=== PATIENT | female | born 1965 | race Caucasian/White ===

== ENCOUNTER 2016-11-21 17:00 | Observation (INO) ==
[2016-11-21] MEDS ORDERED: 0.9 % Sodium Chloride 500 ML IVC ONE (17:17)
[2016-11-21] MEDS ORDERED: Nitroglycerin 0.4 MG TAB.SUBL SL ONE (17:17)
[2016-11-21] MEDS ORDERED: *HR* Metoprolol 5 MG/5 ML VIAL IVP ONE (17:17)
[2016-11-21] MEDS ORDERED: Aspirin 81 MG TAB.CHEW PO ONE (17:17)
--- NOTE | 2016-11-21 17:20 | Emergency Department Note ---
Disposition Clinical Impression: Chest pain Qualifiers: Chest pain type: unspecified Qualified Code(s): R07.9 - Chest pain, unspecified Disposition: Admitted As Inpatient Condition: Good Referrals: Josef Jennings MD [Primary Care Provider] - Forms: ED Satisfaction Letter Time of Disposition: 18:47 Chest Pain HPI - General Chief Complaint: ED Chest Pain Stated Complaint: chest pressure, DELROY Source: patient, family Limitations: no limitations Vital Signs Reviewed: Yes Nursing Notes Reviewed: Yes - History of Present Illness HPI Narrative: 51-year-old female presents to the emergency department with worsening chest pain. Pain is described as a pressure sensation midsternal radiating to the neck and to the left shoulder. Pain has been pretty much consistent all day but it waxes and wanes. Associated with diaphoresis and some shortness of breath. Patient states he had a similar episode months ago. She says that she recently had a stress test and was told that it did not show significant disease but she is not sure if she has some disease. She denies fevers or chills at this time but did have some sweating earlier today associated with the chest pain. She also notes that she has had her heart but she has felt was racing she said her heart rate has come down below 90. She denies vomiting or diarrhea. She has no other complaints at this time. Patient notes she is a smoker and does have a strong family history both cardiac disease and vascular disease in general. She says she has peripheral vascular disease with narrowing of her arteries. Pt complaint: chest pain Onset (ago): hour(s) Duration: constant Onset: during rest, during exertion Pain Location: substernal Severity: moderate Severity scale (1-10): 5 Quality: tightness, heaviness Pain Radiation: LUE, neck Improves with: nothing Worsens with: nothing Associated symptoms: Reports: diaphoresis, dyspnea Treatments prior to arrival chest pain: none - Related Data Home Medications Medication Instructions Recorded Confirmed Aspirin [Lo-Dose Aspirin EC] 81 mg PO DAILY 10/03/16 10/03/16 Previous Rx's Medication Instructions Recorded Ibuprofen [Motrin] 600 mg PO TID PRN #30 tab 05/01/16 Lisinopril-HCTZ 10-12.5 [Prinzide 1 each PO DAILY #30 tablet 05/01/16 10-12.5] Allergies Allergy/AdvReac Type Severity Reaction Status Date / Time acetaminophen [From Vicodin] AdvReac Hives Verified 10/03/16 15:28 hydrocodone [From Vicodin] AdvReac Hives Verified 10/03/16 15:28 Oxycodone [From Percocet] AdvReac Difficulty Verified 10/03/16 15:28 Breathing All systems ED: reviewed and negative except as stated. Constitutional: Reports: as per HPI Cardiovascular: Reports: as per HPI Respiratory: Reports: as per HPI Gastrointestinal: Reports: as per HPI Genitourinary: Reports: as per HPI Neurological: Denies: headache, weakness, numbness, paresthesias, confusion, abnormal gait, vertigo Chest Pain PMH - Past Medical History Medical history: Reports: hyperlipidemia, hypertension, other Surgical history: Reports: cholecystectomy, hysterectomy Psychiatric history: Reports: no psych history PLANNING LEAD history: Reports: non-contributory - Social History Smoking Status: Current every day smoker Alcohol use: Reports: none Drug use: Reports: none Physical Exam - General Limitations: no limitations General appearance: alert, in no apparent distress - Head Head exam: atraumatic - Eye Eye exam: Present: normal appearance - ENT ENT exam: normal exam - Neck Neck exam: Present: normal inspection - Chest Chest inspection: Present: normal inspection, symmetric chest wall rise - Respiratory Respiratory exam: Present: normal lung sounds bilaterally. Absent: respiratory distress - Cardiovascular Cardiovascular exam: Present: regular rate, tachycardia, normal heart sounds - Abdominal Exam Abdominal exam: Present: soft, Non-Tender - Extremities Exam Extremities exam: Present: normal inspection - Neurological Exam Neurological exam: Present: alert, oriented X3 - Psychiatric Psychiatric exam: Present: normal affect, normal mood - Skin Skin exam: Present: warm, dry, intact Course Vital Signs Temperature 98.1 F 11/21/16 17:09 Pulse Rate 110 11/21/16 17:09 Respiratory Rate 18 11/21/16 17:09 Blood Pressure 137/91 11/21/16 17:09 O2 Sat by Pulse Oximetry 94 L 11/21/16 17:09 Temperature 98.1 F 11/21/16 17:09 Pulse Rate 93 11/21/16 18:30 Respiratory Rate 16 11/21/16 18:30 Blood Pressure 125/80 11/21/16 18:30 O2 Sat by Pulse Oximetry 97 11/21/16 18:30 Oxygen Delivery Oxygen Delivery Room Air Chest Pain - MDM Narrative Medical decision making narrative: We will do workup for chest pain and likely admit. We will also attempt to treat the pain with both Lopressor and nitroglycerin. We will also give the patient aspirin and she is not taken it yet today. Patient's pain improved with nitroglycerin aspirin and Lopressor. She was pain- free at that point. I spoke with cardiology because the patient recently had a normal stress test. And despite this finding and normal workup today he felt there is a potential concern for accelerated angina. His suggestion was to admit to the hospitalist service and have cardiology do another consultation while in hospital. Patient was comfortable with this plan. I spoke with the on -call hospitalist at approximately 6:45 PM and admission was formally arranged. - Medical Records Medical records reviewed: Yes I reviewed the patient's medical records. - Lab Data Lab results reviewed: Yes I reviewed the patient's lab results. Result diagrams: 11/21/16 17:42 11/21/16 17:42 Lab Results 11/21/16 11/21/16 11/21/16 Range/Units 17:42 17:42 17:42 WBC 10.0 (4.3-11.1) K/mcL RBC 4.71 (3.82-4.97) M/mcL Hgb 15.1 (11.5-15.4) g/dL Hct 44.1 (35.3-44.9) % MCV 93.6 (83.0-100.0) fL MCH 32.1 (28.0-33.3) pg MCHC 34.2 (31.6-35.5) g/dL RDW 12.6 (11.5-14.5) % Plt Count 258 (140-400) K/mcL MPV 9.5 (9.4-12.4) fL Immature Gran % 0.4 (0-4) % Seg Neutrophils % 42.6 % Lymphocytes % 45.6 % Monocytes % 5.0 % Eosinophils % 5.5 % Basophils % 0.9 % Neutrophils # 4.3 (1.6-8.9) K/mcL Lymphocytes # 4.6 (0.6-4.6) K/mcL Monocytes # 0.5 (0.0-1.3) K/mcL Eosinophils # 0.6 (0.0-0.6) K/mcL Basophils # 0.1 (0.0-0.2) K/mcL PT 10.7 (9.4-12.1) Seconds INR 1.0 APTT 30.4 (26.0-36.0) Seconds D-Dimer 423 (0-500) ng/mLFEU Sodium (136-145) mEq/L Potassium (3.5-4.5) mEq/L Chloride (98-109) mEq/L Carbon Dioxide (19-29) mEq/L BUN (7-20) mg/dL Creatinine (0.57-1.11) mg/dL Est GFR ( Amer) (> 60) Est GFR (Non-Af Amer) (> 60) BUN/Creatinine Ratio (6-26) Glucose (70-99) mg/dL Calculated Osmolality (280-300) Calcium (8.6-10.8) mg/dL Troponin I (0-0.03) ng/mL B-Natriuretic Peptide < 10 (0-100) pg/mL 11/21/16 11/21/16 Range/Units 17:42 17:42 WBC (4.3-11.1) K/mcL RBC (3.82-4.97) M/mcL Hgb (11.5-15.4) g/dL Hct (35.3-44.9) % MCV (83.0-100.0) fL MCH (28.0-33.3) pg MCHC (31.6-35.5) g/dL RDW (11.5-14.5) % Plt Count (140-400) K/mcL MPV (9.4-12.4) fL Immature Gran % (0-4) % Seg Neutrophils % % Lymphocytes % % Monocytes % % Eosinophils % % Basophils % % Neutrophils # (1.6-8.9) K/mcL Lymphocytes # (0.6-4.6) K/mcL Monocytes # (0.0-1.3) K/mcL Eosinophils # (0.0-0.6) K/mcL Basophils # (0.0-0.2) K/mcL PT (9.4-12.1) Seconds INR APTT (26.0-36.0) Seconds D-Dimer (0-500) ng/mLFEU Sodium 138 (136-145) mEq/L Potassium 3.7 (3.5-4.5) mEq/L Chloride 107 (98-109) mEq/L Carbon Dioxide 19 (19-29) mEq/L BUN 11 (7-20) mg/dL Creatinine 0.76 (0.57-1.11) mg/dL Est GFR ( Amer) > 60 (> 60) Est GFR (Non-Af Amer) > 60 (> 60) BUN/Creatinine Ratio 14 (6-26) Glucose 156 H (70-99) mg/dL Calculated Osmolality 289 (280-300) Calcium 9.3 (8.6-10.8) mg/dL Troponin I 0.00 (0-0.03) ng/mL B-Natriuretic Peptide (0-100) pg/mL - Radiology Data Radiology results reviewed: Yes I reviewed the patient's radiology results. - EKG Data EKG attestation: Yes I reviewed and interpreted this EKG. EKG shows normal: sinus rhythm Rate: tachycardia Rhythm: NSR When compared to previous EKG there are: no significant changes Interpretation: no acute changes Critical Care Time Critical Care Time: Yes Total Critical Care Time: 35 Attestation: Management patient's chest pain and probable angina. Medical care time 35 minutes exclusive of any separately billable procedures.
[2016-11-21 17:57] LABS: Basophils # 0.1 K/mcL (0.0-0.2); Basophils % 0.9 %; Eosinophils # 0.6 K/mcL (0.0-0.6); Eosinophils % 5.5 %; Hematocrit 44.1 % (35.3-44.9); Hemoglobin 15.1 g/dL (11.5-15.4); Immature Granulocytes % 0.4 % (0-4); Lymphocytes # 4.6 K/mcL (0.6-4.6); Lymphocytes % 45.6 %; Mean Corpuscular HGB Conc 34.2 g/dL (31.6-35.5); Mean Corpuscular Hemoglobin 32.1 pg (28.0-33.3); Mean Corpuscular Volume 93.6 fL (83.0-100.0); Mean Platelet Volume 9.5 fL (9.4-12.4); Monocytes # 0.5 K/mcL (0.0-1.3); Neutrophils # 4.3 K/mcL (1.6-8.9); Platelet Count 258 K/mcL (140-400); Red Blood Count 4.71 M/mcL (3.82-4.97); Red Cell Distribution Width 12.6 % (11.5-14.5); Segmented Neutrophils % 42.6 %
[2016-11-21 18:03] LABS: Prothrombin Time 10.7 Seconds (9.4-12.1)
[2016-11-21 18:05] LABS: Activated Partial Thrombo Time 30.4 Seconds (26.0-36.0)
[2016-11-21 18:09] LABS: BUN/Creatinine Ratio 14 (6-26); Blood Urea Nitrogen 11 mg/dL (7-20); Calcium 9.3 mg/dL (8.6-10.8); Carbon Dioxide 19 mEq/L (19-29); Chloride 107 mEq/L (98-109); Glucose 156 mg/dL (70-99); Osmolality,Calculated 289 (280-300); Potassium 3.7 mEq/L (3.5-4.5); Sodium 138 mEq/L (136-145); eGFR For African Americans > 60 (> 60); eGFR For Non-African Americans > 60 (> 60)
[2016-11-21] MEDS ORDERED: Naloxone 0.4 MG/ML INJ IVP PRN (19:38)
[2016-11-21] MEDS ORDERED: Ondansetron 4 MG/2 ML VIAL IVP PRN (19:38)
[2016-11-21] MEDS ORDERED: Nitroglycerin 0.4 MG TAB.SUBL SL PRN (19:42)
--- NOTE | 2016-11-21 19:46 | Internal Med History&Physical ---
<Indy Carvajal - Last Filed: 11/21/16 21:29> Date of Encounter: 11/21/16 Time of Encounter: 19:46 Assessment and Plan (1) Chest pain Current visit: Yes Status: Acute 1 patient had has chest pain is worse with exertion and relieved with nitroglycerin. She had a cardiac stress test which was negative on Wednesday.Tiffani cardiac troponins are negative we will continue to cycle cardiac troponins 2 nitroglycerin / oxygen as needed for chest pain 3 continue with aspirin and statin and add beta tanya 4 we will make patient nothing by mouth after midnight and be seen by cardiology in a.m. 5 continuous cardiac monitoring Qualifiers: Chest pain type: unspecified Qualified Code(s): R07.9 - Chest pain, unspecified (2) HTN (hypertension) Current visit: Yes Status: Acute 1 presently stable we will continue with lisinopril hydrochlorothiazide Qualifiers: Hypertension type: essential hypertension Qualified Code(s): I10 - Essential (primary) hypertension (3) PVD (peripheral vascular disease) Current visit: Yes Status: Acute 1 we will continue with pletal aspirin and statin (4) Tobacco abuse Current visit: Yes Status: Acute 1 presently smokes 1 pack per day-encourage patient to stop smoking offered nicotine patch but patient declined this time Internal Medicine - H&P: HPI Chief complaint: cp Admitted From: Home Plans for Post Hospital Care: Home History of present illness: Ms. Merritt is a 51 year old female with history of hypertension peripheral vascular disease hyperlipidemia. According to the patient she began to experience midsternal chest pressure which she described as squeezing which radiated to her left shoulder and left neck patient's been consistent 5/10 with associated symptoms of diaphoresis and some shortness of breath there were no aggravating or relieving factors. She is also concerned because her heart rate was elevated she felt like it was racing so heart rate was approximately 100 and that her normal resting heart rate is 70 She has similar episode a month ago and she underwent a stress test on Wednesday that was negative for ischemia. She presented to the ER with the above complaints. The patient was given nitroglycerin and aspirin and Lopressor after administration the patient was pain-free.(Cardiac troponin was negative EKG with no ST-T wave abnormalities. Chest x-ray was negative. ER physician did speak with the district manager in training breakdown person who felt there is a potential concern for accelerated angina and suggested patient be admitted by hospitalist services and consult them for evaluation in the a.m. Patient was admitted for further workup and evaluation. Presently the patient is chest pain-free she denies any shortness of breath at present time she is hemodynamically stable I reviewed this case with Dr. Aguilar and agrees with the plan Past Med Surg Social Fam HX - Past Medical History Medical history: hyperlipidemia, hypertension, other Psychiatric history: no psych history - Past Surgical History Surgical History: cholecystectomy, hysterectomy - Social History Smoking Status: Current every day smoker Smokeless Tobacco Status: No Alcohol use: none Drug use: none - Family History Father Living Status: Hx Family Cardiac Disorders: Yes ([place]) Hx Family Neurologic Disorders: Yes (CVA) Sister Hx Family Neurologic Disorders: Yes (CVA) Internal Medicine - H&P: Meds Aspirin [Lo-Dose Aspirin EC] 81 mg PO DAILY 10/03/16 [History] Atorvastatin Calcium [Lipitor] 80 mg PO DAILY 11/22/16 [History] Cilostazol [Pletal] mg PO BID 11/22/16 [History] Lisinopril [Zestril] 5 mg PO DAILY 11/22/16 [History] Allergies acetaminophen [From Vicodin] Adverse Reaction (Verified 10/03/16 15:28) Hives hydrocodone [From Vicodin] Adverse Reaction (Verified 10/03/16 15:28) Hives Oxycodone [From Percocet] Adverse Reaction (Verified 10/03/16 15:28) Difficulty Breathing All Systems PM: A 10-system review of systems was performed and is negative for pertinent findings except as documented above in the HPI. - Constitutional Constitutional: no chills, no fever(s), no night sweats - EENT Eyes: no change in vision, no discharge, no pain, no photophobia - Cardiovascular Cardiovascular ROS IM: chest pain, diaphoresis - Respiratory Respiratory: dyspnea - Gastrointestinal Gastrointestinal: nausea - Genitourinary Genitourinary: no change in urinary stream, no dysuria, no flank pain, no hematuria - Musculoskeletal Musculoskeletal ROS IM: no numbness, no tingling - Integumentary Integumentary IM: no rash, no unusual bruising - Neurological Neurological ROS: no confusion, no convulsions, no focal weakness, no numbness, no tingling, no tremor(s) - Constitutional Vitals: Temp Pulse Resp BP Pulse Ox 98.1 F 91 16 123/86 98 11/21/16 17:09 11/21/16 18:45 11/21/16 19:00 11/21/16 19:00 11/21/16 18:45 General appearance: Present: A&O X 3 - Head Head exam: Present: atraumatic, normocephalic - Neck Neck exam general surgery: Present: supple, trachea midline. Absent: lymphadenopathy - Respiratory Respiratory exam: Present: CTAB. Absent: accessory muscle use, rales, rhonchi, wheezes - Cardiovascular Cardiovascular exam: Present: RRR, +S1, +S2. Absent: diastolic murmur, gallop, rubs, systolic murmur - GI/Abdominal GI/Abdominal exam: Present: normal bowel sounds, soft, no peritoneal signs. Absent: distended, tenderness - Extremities Exam Extremities exam: Present: warm, radial pulses palpable and symetrical. Absent : calf tenderness, cyanotic, pedal edema - Neurological Exam Neurological exam: Present: CN II-XII intact, oriented X3, no focal deficits. Absent: pronater drift, facial droop, speech deficit - Skin Skin exam: Present: dry, intact Internal Med - H&P Results - Labs CBC & Chem 7: 11/21/16 17:42 11/21/16 17:42 - EKG Data EKG shows normal: sinus rhythm Rate: tachycardia - EKG Data Prior EKG available for review: yes When compared to previous EKG: there is no significant change Interpretation IM: normal EKG - VTE Reasons for not Prescribing Prophylaxis: Treatment not Indicated - Low risk for VTE <Sherri Aguilar R - Last Filed: 11/22/16 00:28> Date of Encounter: 11/21/16 Internal Medicine - H&P: HPI History of present illness: Ms. Merritt is a 51 year old female All Systems PM: A 10-system review of systems was performed and is negative for pertinent findings except as documented above in the HPI. - Constitutional Vitals: Temp Pulse Resp BP Pulse Ox 97.6 F 55 20 99/65 94 L 11/21/16 23:15 11/21/16 23:15 11/21/16 23:15 11/21/16 23:15 11/21/16 23:15 Internal Med - H&P Results - Labs CBC & Chem 7: 11/21/16 17:42 11/21/16 17:42 - Attending Attestation I examined this patient and my medical decision-making was reviewed with the SENIOR ACCOUNTANT/PA/Advanced Practice Nurse/Resident Physician. I agree with the documented findings, disposition and treatment plan as described except to the extent set forth below. I have personally evaluated the pt and discussed the details with MANAGER LAW. Patient recently had a negative stress test about a week ago. She presented with chest pain today. No pain at the time of my evaluation. Troponin is negative. EKG showed no acute ST-T changes. O/E: Not in acute distress. Cardiac regular rate and rhythm. 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 Trend troponins. ER physician discussed with district manager in training - cardiac consultation for possible cardiac catheterization. Patient has hyperglycemia - we will check hemoglobin A1c.
[2016-11-22 01:29] LABS: Hemoglobin A1C 6.4 %
[2016-11-22 01:32] LABS: BUN/Creatinine Ratio 14 (6-26); Blood Urea Nitrogen 10 mg/dL (7-20); Carbon Dioxide 20 mEq/L (19-29); Chloride 108 mEq/L (98-109); Chol/HDL Ratio 3.9 (0-4.9); Cholesterol 102 mg/dL (< 200); Glucose 120 mg/dL (70-99); HDL Cholesterol 26 mg/dL (40-59); LDL Cholesterol,Calculated 40 mg/dL (0-99); Osmolality,Calculated 286 (280-300); Potassium 4.1 mEq/L (3.5-4.5); Sodium 138 mEq/L (136-145); Triglycerides 178 mg/dL (< 150); eGFR For African Americans > 60 (> 60); eGFR For Non-African Americans > 60 (> 60)
[2016-11-22] MEDS: Nicotine 14 MG PATCH.TD24 TD SCH (07:49)
--- NOTE | 2016-11-22 09:44 | Cardiology Consult Note ---
Date of Encounter: 11/22/16 Time of Encounter: 09:40 Assessment and Plan (1) Unstable angina Current Visit: Yes Status: Acute Recurrent chest pain over the past month. Multiple risk factors including hypertension, hyperlipidemia, peripheral vascular disease, family history,and tobacco use. Stress test on 11/13/2016 was negative for ischemia or infarct. EF 70%. TTE in 2013 showed normal LV function and no significant valvular disease. Aggressive risk factor modification discussed. Smoking cessation discussed. Continue aspirin and statin. Add low-dose beta tanya. LHC was discussed. (2) HTN (hypertension) Current Visit: Yes Status: Acute Her blood pressure has been is susceptible. Continue lisinopril and hydrochlorothiazide. Qualifiers: Hypertension type: essential hypertension Qualified Code(s): I10 - Essential (primary) hypertension (3) Tobacco abuse Current Visit: Yes Status: Acute Smoking cessation was discussed. Patient would like to try to quit smoking without any assistance at this time. Discussion w patient/family: The assessment and plan as outlined above was discussed with the patient and/or family members who expressed understanding and agreement. All questions were answered. Thank you for involving us in the care of your patient. Please call with any questions. History of Present Illness Consult date: 11/21/16 Consult reason: Recurrent chest pain Chief complaint: Chest pain History of present illness: Ms. Merritt is a 51 year old female with a history of hypertension, HLD, PAD, and tobacco use. She presented with chest discomfort that was present when she woke up yesterday morning. She reports her pain increased through out the day. She denies an increase in chest pain with exertion. Her discomfort was associated with mild shortness of breath and nausea. Her symptoms improved with nitroglycerin. She reports having a midsternal chest discomfort at rest intermittently over the past month. She underwent a stress test on 11/13/2016 that was negative for ischemia or infarct. She denies previous history of CAD. She was recently diagnosed with PAD and follows with a peripheral vascular surgeon. She is currently on medical management. TTE in 2013 showed normal EF and no significant valvular disease. Past Med Surg Social Fam HX - Past Medical History Medical history: hyperlipidemia, hypertension, other (PAD) Psychiatric history: no psych history - Past Surgical History Surgical History: cholecystectomy, hysterectomy - Social History Smoking Status: Current every day smoker (for 35 years) Packs per day: 1 Smokeless Tobacco Status: No Alcohol use: none Drug use: none - Family History Father Living Status: Hx Family Cardiac Disorders: Yes ([place]) Hx Family Neurologic Disorders: Yes (CVA) Sister Hx Family Neurologic Disorders: Yes (CVA) Medications and Allergies Aspirin [Lo-Dose Aspirin EC] 81 mg PO DAILY 10/03/16 [History] Atorvastatin Calcium [Lipitor] 80 mg PO DAILY 11/22/16 [History] Cilostazol [Pletal] mg PO BID 11/22/16 [History] Lisinopril [Zestril] 5 mg PO DAILY 11/22/16 [History] Allergies acetaminophen [From Vicodin] Adverse Reaction (Verified 10/03/16 15:28) Hives hydrocodone [From Vicodin] Adverse Reaction (Verified 10/03/16 15:28) Hives Oxycodone [From Percocet] Adverse Reaction (Verified 10/03/16 15:28) Difficulty Breathing All Systems Review: A 10-system review of systems was performed and is negative for pertinent findings except as documented above in the HPI. Physical Examination Vital Signs, Last 4 Hours Temp Pulse Resp BP Pulse Ox 11/22/16 06:54 97.6 F 68 16 106/73 94 L General: Conversant, No Apparent Distress HEENT: Atraumatic, Normocephaly, Mucus Membranes Moist Neck: No JVD, Normal carotid pulses Cardiac: Reg Rate and Rhythm, Normal S1 and S2, No Murmur Lungs: Normal Breath Sounds, No Wheeze, Rales, Rhonchi Neuro: Alert and responsive, No focal deficits noted Abdomen: Soft, Non-Tender Skin: No rashes noted on visualized skin Musculoskeletal: No Chest Wall Tenderness Extremities: No Clubbing, No Cyanosis, No Edema, Normal Pulses Results 11/21/16 17:42 11/22/16 01:01 Lab Results 11/22/16 11/22/16 11/22/16 01:01 01:01 01:01 Sodium 138 Potassium 4.1 Chloride 108 Carbon Dioxide 20 BUN 10 Creatinine 0.72 Glucose 120 H Calcium 9.0 Troponin I 0.01 B-Natriuretic Peptide < 10 11/22/16 06:49 Sodium Potassium Chloride Carbon Dioxide BUN Creatinine Glucose Calcium Troponin I 0.00 B-Natriuretic Peptide - EKG Interpretation EKG results cardiology: personally reviewed (Sinus tachycardia, heart rate [address] changes.) Consult Discharge Plan - Plan Referrals: Josef Jennings MD [Primary Care Provider] -
[2016-11-22] MEDS: Aspirin 81 MG TAB.CHEW PO SCH (10:35)
--- NOTE | 2016-11-22 16:23 | Internal Med Progress Note ---
Date of Encounter: 11/22/16 Time of Encounter: 16:21 - Assessment and plan (1) Chest pain Current Visit: Yes Status: Acute Assessment and plan: Admitted with chest pain, she underwent cardiac workup in the past, stress test was negative for ischemia. The patient will undergo cardiac catheter tomorrow in a.m. We will keep the patient nothing by mouth after midnight. Continue with current management. Qualifiers: Chest pain type: unspecified Qualified Code(s): R07.9 - Chest pain, unspecified (2) Tobacco abuse Current Visit: Yes Status: Acute - Subjective Interval history: This is my first encounter with the patient. The patient was admitted because of suicidal chest pain, which decreased with the use of nitroglycerin. At this moment the patient is chest pain-free. - Constitutional Vitals: Temp Pulse Resp BP Pulse Ox 97.8 F 68 18 131/85 96 11/22/16 14:40 11/22/16 14:40 11/22/16 14:40 11/22/16 14:40 11/22/16 14:40 General appearance: Present: A&O X 3 - Head Head exam: Present: atraumatic, normocephalic - Eye Eye exam: Present: PERRL, conjuntiva pink, sclera anicteric Pupils: Present: PERRL - Neck Neck exam general surgery: Present: supple, trachea midline. Absent: lymphadenopathy - Respiratory Respiratory exam: Present: CTAB. Absent: accessory muscle use, rales, rhonchi, wheezes - Cardiovascular Cardiovascular exam: Present: RRR, +S1, +S2. Absent: diastolic murmur, gallop, rubs, systolic murmur - GI/Abdominal GI/Abdominal exam: Present: normal bowel sounds, soft, no peritoneal signs. Absent: distended, tenderness - Extremities Exam Extremities exam: Present: warm, radial pulses palpable and symetrical. Absent : calf tenderness, cyanotic, pedal edema - Neurological Exam Neurological exam: Present: CN II-XII intact, oriented X3, no focal deficits. Absent: pronater drift, facial droop, speech deficit - Skin Skin exam: Present: dry, intact Internal Medicine: Result - Labs CBC & Chem 7: 11/21/16 17:42 11/22/16 01:01 Labs: BMP 11/22/16 01:01 Sodium 138 Potassium 4.1 Chloride 108 Carbon Dioxide 20 BUN 10 Creatinine 0.72 Glucose 120 H Calcium 9.0 Cardiac Enzymes 11/22/16 11/22/16 Range/Units 01:01 06:49 Troponin I 0.01 0.00 (0-0.03) ng/mL - ABG Interpretation ABG results: PT/INR, D-dimer PT 10.7 Seconds (9.4-12.1) 11/21/16 17:42 D-Dimer 423 ng/mLFEU (0-500) 11/21/16 17:42 - VTE Reasons for not Prescribing Prophylaxis: Treatment not Indicated - Low risk for VTE Consult Discharge Plan - Plan Referrals: Josef Jennings MD [Primary Care Provider] -
--- NOTE | 2016-11-23 06:17 | Electrocardiograph Report ---
[facility] Test Date: 2016-11-21 Pat Name: Ailyn Merritt Department: 103 Room: 3A34 Gender: F Visual Specialist: ACT : 1965 Requested By: Carlos Lira Order Number: [id number] Reading MD: Chucky Villanueva MD Measurements Intervals [place] Rate: 104 P: 14 OR: 122 QRS: 72 QRSD: 86 T: 15 QT: 341 QTc: 401 Interpretive Statements SINUS TACHYCARDIA POSSIBLE INFERIOR MYOCARDIAL INFARCTION, PROBABLY OLD Electronically Signed On 11-23-16 06:16:05 EST by Chucky Villanueva MD
[2016-11-23] MEDS: Aspirin 81 MG TAB.CHEW PO SCH ×2 (08:10→17:49)
[2016-11-23] MEDS: Nicotine 14 MG PATCH.TD24 TD SCH (08:11)
[2016-11-23] MEDS ORDERED: Heparin 1,000 UNITS/500 mL NS 500 ML ONE (12:25)
[2016-11-23] MEDS ORDERED: *HR* Heparin 10,000 UNIT/10 ML VIAL ONE ×2 (12:25→13:39)
[2016-11-23] MEDS ORDERED: 0.9 % Sodium Chloride 1,000 ML ONE ×3 (12:25→14:21)
[2016-11-23] MEDS ORDERED: *HR* FentaNYL (PF) 100 MCG/2 ML VIAL ONE ×2 (13:09→15:19)
[2016-11-23] MEDS ORDERED: *HR* Midazolam HCl 2 MG/2 ML VIAL ONE ×2 (13:09→13:11)
[2016-11-23] MEDS ORDERED: Nitroglycerin 1,000 MCG/10 ML VIAL IV ONE (13:39)
[2016-11-23] MEDS ORDERED: Verapamil 5 MG/2 ML VIAL ONE (13:39)
--- NOTE | 2016-11-23 14:31 | Pre-Sedation Evaluation ---
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
[2016-11-23] MEDS ORDERED: *HR* Midazolam HCl 5 MG/5 ML VIAL IVP ONE (14:46)
[2016-11-23] MEDS ORDERED: Tirofiban 12.5 MG/250ML 12.5 MG/250 ML BAG ONE (15:22)
[2016-11-23] MEDS ORDERED: *HR* HYDROcodone/Acet 5/325 mg TABLET PO PRN (15:41)
[2016-11-23] MEDS ORDERED: Nitroglycerin Spray 4.9 GM BOTTLE ONE (15:45)
[2016-11-23] MEDS ORDERED: *HR* Morphine 2 MG/ML SYRINGE ONE (15:47)
[2016-11-23] MEDS ORDERED: traMADol 50 MG TABLET PO PRN (15:57)
--- NOTE | 2016-11-23 15:57 | Internal Med Progress Note ---
<Frederick Randle - Last Filed: 11/23/16 15:47> Date of Encounter: 11/23/16 Time of Encounter: 15:48 - Assessment and plan (1) Chest pain, rule out acute myocardial infarction Current Visit: Yes Status: Acute Assessment and plan: Stress test as outpt was negative, has multiple risk factors for CAD, cardio consulted, LHC today, will f/u on the results. (2) Pre-diabetes Current Visit: Yes Status: Acute Assessment and plan: A1C was 6.4, advised pt to start diet and lifestyle modification with weekly exercise. (3) HLD (hyperlipidemia) Current Visit: Yes Status: Acute Assessment and plan: Con't lipitor. Qualifiers: Qualified Code(s): E78.5 - Hyperlipidemia, unspecified (4) HTN (hypertension) Current Visit: Yes Status: Acute Assessment and plan: Con't lopressor. Qualifiers: Qualified Code(s): I10 - Essential (primary) hypertension (5) DVT prophylaxis Current Visit: Yes Status: Acute Assessment and plan: IPCs. - Subjective Interval history: Pt seen and examined this AM, denies active chest pain, no nausea/emesis or abd pain. - Constitutional Vitals: Temp Pulse Resp BP Pulse Ox 98.3 F 72 16 121/80 97 11/23/16 11:04 11/23/16 11:04 11/23/16 11:04 11/23/16 11:04 11/23/16 11:04 General appearance: Present: cooperative, A&O X 3, pleasant, no acute distress, answers questions appropriately - Head Head exam: Present: atraumatic, normocephalic - Eye Eye exam: Present: PERRL, conjuntiva pink, sclera anicteric Pupils: Present: PERRL - Neck Neck exam general surgery: Present: supple, trachea midline. Absent: lymphadenopathy - Respiratory Respiratory exam: Present: CTAB. Absent: accessory muscle use, rales, rhonchi, wheezes - Cardiovascular Cardiovascular exam: Present: RRR, +S1, +S2. Absent: diastolic murmur, gallop, rubs, systolic murmur - GI/Abdominal GI/Abdominal exam: Present: normal bowel sounds, soft, no peritoneal signs. Absent: distended, tenderness - Extremities Exam Extremities exam: Present: warm, radial pulses palpable and symetrical. Absent : calf tenderness, cyanotic, pedal edema - Neurological Exam Neurological exam: Present: CN II-XII intact, oriented X3, no focal deficits. Absent: pronater drift, facial droop, speech deficit - Skin Skin exam: Present: dry, intact Internal Medicine: Result - Labs CBC & Chem 7: 11/21/16 17:42 11/22/16 01:01 - ABG Interpretation ABG results: PT/INR, D-dimer PT 10.7 Seconds (9.4-12.1) 11/21/16 17:42 D-Dimer 423 ng/mLFEU (0-500) 11/21/16 17:42 - VTE Reasons for not Prescribing Prophylaxis: Treatment not Indicated - Low risk for VTE Consult Discharge Plan - Plan Referrals: Josef Jennings MD [Primary Care Provider] - <Kirby Trammell - Last Filed: 11/23/16 17:01> - Assessment and plan (1) Chest pain Current Visit: Yes Status: Acute Qualifiers: Chest pain type: unspecified Qualified Code(s): R07.9 - Chest pain, unspecified (2) Tobacco abuse Current Visit: Yes Status: Acute - Constitutional Vitals: Temp Pulse Resp BP Pulse Ox 97.9 F 72 16 141/90 93 L 11/23/16 16:16 11/23/16 16:16 11/23/16 16:16 11/23/16 16:16 11/23/16 16:16 Internal Medicine: Result - Labs CBC & Chem 7: 11/21/16 17:42 11/22/16 01:01 - ABG Interpretation ABG results: PT/INR, D-dimer PT 10.7 Seconds (9.4-12.1) 11/21/16 17:42 D-Dimer 423 ng/mLFEU (0-500) 11/21/16 17:42 - Attending Attestation I agree with the physical examination findings, assessment and plan documented by the resident Dr. Frederick Randle. I examined the patient independently. Patient will go for a cardiac catheter today, will follow report, discuss the case with cardiology and manage accordingly.
[2016-11-24 06:20] LABS: Basophils # 0.1 K/mcL (0.0-0.2); Eosinophils # 0.5 K/mcL (0.0-0.6); Eosinophils % 5.4 %; Hematocrit 42.7 % (35.3-44.9); Hemoglobin 13.9 g/dL (11.5-15.4); Immature Granulocytes % 0.6 % (0-4); Lymphocytes # 3.5 K/mcL (0.6-4.6); Lymphocytes % 39.9 %; Mean Corpuscular HGB Conc 32.6 g/dL (31.6-35.5); Mean Corpuscular Hemoglobin 31.7 pg (28.0-33.3); Mean Corpuscular Volume 97.3 fL (83.0-100.0); Mean Platelet Volume 9.7 fL (9.4-12.4); Monocytes # 0.5 K/mcL (0.0-1.3); Monocytes % 5.3 %; Neutrophils # 4.2 K/mcL (1.6-8.9); Platelet Count 225 K/mcL (140-400); Red Blood Count 4.39 M/mcL (3.82-4.97); Red Cell Distribution Width 12.7 % (11.5-14.5); Segmented Neutrophils % 47.8 %
[2016-11-24 06:31] LABS: BUN/Creatinine Ratio 14 (6-26); Blood Urea Nitrogen 11 mg/dL (7-20); Calcium 8.9 mg/dL (8.6-10.8); Carbon Dioxide 19 mEq/L (19-29); Chloride 107 mEq/L (98-109); Glucose 133 mg/dL (70-99); Osmolality,Calculated 289 (280-300); Potassium 4.5 mEq/L (3.5-4.5); Sodium 139 mEq/L (136-145); eGFR For African Americans > 60 (> 60); eGFR For Non-African Americans > 60 (> 60)
[2016-11-24 07:20] VITALS: BP 117/75
[2016-11-24] MEDS: Aspirin 81 MG TAB.CHEW PO SCH (11:14)
[2016-11-24] MEDS: Nicotine 14 MG PATCH.TD24 TD SCH (11:15)
--- NOTE | 2016-11-24 12:00 | Cardiology Progress Note ---
Date of Encounter: 11/24/16 Time of Encounter: 12:58 Assessment and Plan (1) Unstable angina Current Visit: Yes Status: Acute Stress test on 11/13/2016 was negative for ischemia or infarct. EF 70%. TTE in 2013 showed normal LV function and no significant valvular disease. LHC-s/p PCI with TRACY to her mid RCA. Normal LV function. Aggressive risk factor modification discussed. Smoking cessation discussed. Continue aspirin and statin, plavix, and bb. Importance of DAPT uninterrupted for a minimum of 1 year discussed with patient and she voiced understanding. Pletal discontinued due to the addition of Plavix. 1-2 week follow-up will be scheduled with [place] cardiology. (2) HTN (hypertension) Current Visit: Yes Status: Acute Continue lisinopril and hydrochlorothiazide. Qualifiers: Hypertension type: essential hypertension Qualified Code(s): I10 - Essential (primary) hypertension (3) Tobacco abuse Current Visit: Yes Status: Acute Smoking cessation was discussed. Patient would like to try to quit smoking without any assistance at this time. Discussion w patient/family: The assessment and plan as outlined above was discussed with the patient and/or family members who expressed understanding and agreement. All questions were answered. Thank you for involving us in the care of your patient. Please call with any questions. Subjective Principal diagnosis: CAD Interval history: Ms. Merritt denies recurrent chest pain. Denies pain or swelling at right radial access site. Objective Vital Signs Temp Pulse Resp BP Pulse Ox 11/24/16 07:16 98 F 62 16 117/75 99 11/24/16 03:47 98.1 F 60 18 119/63 97 11/24/16 00:08 97.9 F 63 16 95/70 92 L 11/23/16 20:21 97.8 F 64 16 114/80 94 L 11/23/16 16:16 97.9 F 72 16 141/90 93 L Intake and Output 11/23/16 11/24/16 11/24/16 23:59 07:59 15:59 Intake Total 240 / 240 300 / 300 Balance 240 / 240 300 / 300 Intake: Oral 240 / 240 300 / 300 Other: Meal Dinner Breakfast Percent of Meal Consumed 60% 25% Weight 84.1 kg Blood Glucose* 167 132 188 General: Conversant, No Apparent Distress HEENT: Atraumatic, Normocephaly, Mucus Membranes Moist Neck: No JVD, Normal carotid pulses Cardiac: Reg Rate and Rhythm, Normal S1 and S2, No Murmur Lungs: Normal Breath Sounds, No Wheeze, Rales, Rhonchi Neuro: Alert and responsive, No focal deficits noted Abdomen: Soft, Non-Tender Skin: No rashes noted on visualized skin Musculoskeletal: No Chest Wall Tenderness Extremities: No Clubbing, No Cyanosis, No Edema, Normal Pulses, Other (Right radial dressing dry and intact. No redness or swelling. 2 /2+ pulses) Results 11/24/16 05:48 11/24/16 05:48 Lab Results 11/24/16 11/24/16 05:48 05:48 WBC 8.8 Hgb 13.9 Hct 42.7 Plt Count 225 Sodium 139 Potassium 4.5 Chloride 107 Carbon Dioxide 19 BUN 11 Creatinine 0.76 Glucose 133 H Calcium 8.9 - Imaging and Cardiology Cardiac cath: report reviewed (Normal EF, 80% mid RCA stenosis, status post PTCA and drug-eluting stent to the mid RCA. There was a 50% stenosis in the mid circumflex artery remaining.) - EKG Interpretation EKG results cardiology: personally reviewed (Normal sinus rhythm with no acute ST changes.) - VTE Reasons for not Prescribing Prophylaxis: Treatment not Indicated - Low risk for VTE Consult Discharge Plan - Plan Referrals: Josef Jennings MD [Primary Care Provider] - Andrey Maxwell DO [Partnered Physician] - 12/08/16 12:00 pm
--- NOTE | 2016-11-24 14:02 | Discharge Summary ---
Date of Encounter: 11/24/16 Time of Encounter: 13:57 - Discharge Diagnosis (1) Unstable angina Priority: Primary Status: Acute (2) Chest pain, rule out acute myocardial infarction Priority: Primary Status: Acute (3) HTN (hypertension) Priority: Secondary Status: Acute Qualifiers: Hypertension type: essential hypertension Qualified Code(s): I10 - Essential (primary) hypertension (4) Hyperglycemia Priority: Secondary Status: Acute (5) HLD (hyperlipidemia) Priority: Secondary Status: Acute Qualifiers: Qualified Code(s): E78.5 - Hyperlipidemia, unspecified (6) PVD (peripheral vascular disease) Priority: Secondary Status: Acute (7) Tobacco abuse Priority: Secondary Status: Acute - Discharge Medications Prescriptions: Nitroglycerin 0.4 mg SL Q5MIN PRN #120 tab.subl PRN Reason: Chest Pain Clopidogrel [Plavix] 75 mg PO DAILY #90 tablet Metoprolol [Lopressor] 12.5 mg PO BID #120 tablet Nicotine Patch [Nicoderm] 14 mg TD DAILY #60 patch.td24 Home Medications: Aspirin [Lo-Dose Aspirin EC] 81 mg PO DAILY 10/03/16 [History] Atorvastatin Calcium [Lipitor] 80 mg PO DAILY 11/22/16 [History] Cilostazol [Pletal] 50 mg PO BID 11/22/16 [History] Lisinopril [Zestril] 5 mg PO DAILY 11/22/16 [History] Sertraline [Zoloft] 50 mg PO DAILY 11/22/16 [History] Clopidogrel [Plavix] 75 mg PO DAILY #90 tablet 11/24/16 [Rx] Metoprolol [Lopressor] 12.5 mg PO BID #120 tablet 11/24/16 [Rx] Nicotine Patch [Nicoderm] 14 mg TD DAILY #60 patch.td24 11/24/16 [Rx] Nitroglycerin 0.4 mg SL Q5MIN PRN #120 tab.subl 11/24/16 [Rx] Allergies/Adverse Reactions: Allergies acetaminophen [From Vicodin] Adverse Reaction (Verified 11/22/16 10:54) Hives hydrocodone [From Vicodin] Adverse Reaction (Verified 11/22/16 10:54) Hives Oxycodone [From Percocet] Adverse Reaction (Verified 11/22/16 10:54) Difficulty Breathing Procedures/tests Complete & Pending: Procedures Performed prior 72 hours Category Date Time Status Left Heart Cath [CL Cardiac Catheterization] [CL] 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 11/22/16 10:19 Ordered Routine ECG 12 lead ECG [ECG] Routine Y 11/23/16 15:46 Completed Date of admission: 11/21/16 18:51 Primary care physician: Josef Jennings MD Consults: 11/23/16 15:41 Consult to Cardiac Rehabilitation-Phase1 [CONS] Routine Comment: Reason for Consult: post op cath Call Completed: Yes Discharging clinician: Marshall Han - Patient Status Disposition: Home, Self-Care Condition: Good Functional capacity at discharge: independent ambulation Overall status at discharge: patient is progressing back to baseline - Discharge Instructions Follow Up With: Josef Jennings MD [Primary Care Provider] - 12/03/16 3:20 pm Andrey Maxwell DO [Partnered Physician] - 12/08/16 12:00 pm - Diet and Activity Activity: increase activity as tolerated Diet: diabetic diet, low fat, low cholesterol Interval History: Ms. Merritt is a 51 year old female with history of hypertension peripheral vascular disease hyperlipidemia. According to the patient she began to experience midsternal chest pressure which she described as squeezing which radiated to her left shoulder and left neck patient's been consistent 5/10 with associated symptoms of diaphoresis and some shortness of breath there were no aggravating or relieving factors. She is also concerned because her heart rate was elevated she felt like it was racing so heart rate was approximately 100 and that her normal resting heart rate is 70 She has similar episode a month ago and she underwent a stress test on Wednesday that was negative for ischemia. She presented to the ER with the above complaints. The patient was given nitroglycerin and aspirin and Lopressor after administration the patient was pain-free.(Cardiac troponin was negative EKG with no ST-T wave abnormalities. Chest x-ray was negative. ER physician did speak with the pattern developer stone setter metal optical frames who felt there is a potential concern for accelerated angina and suggested patient be admitted by hospitalist services and consult them for evaluation in the a.m. Hospital course: Patient was admitted. Patient was evaluated by cardiology. Patient underwent stress test which was negative. Patient underwent cardiac catheterization. Patient had a stent in the mid RCA. LV function was normal. Smoking cessation discussed at length. Patient is on aspirin/Plavix/metoprolol/lisinopril/Lipitor Detailed counseling regarding medications none. Plan Patient can go home today Follow up with primary care in 1 week. Follow-up with cardiology in 1-2 weeks. - Time Spent with Patient Total time spent providing and/or coordinating discharge services: - Constitutional Vitals: Temp Pulse Resp BP Pulse Ox 98 F 62 16 117/75 99 11/24/16 07:16 11/24/16 07:16 11/24/16 07:16 11/24/16 07:16 11/24/16 07:16 General appearance: Present: cooperative, A&O X 3, pleasant, no acute distress, answers questions appropriately - Head Head exam: Present: atraumatic, normocephalic - Eye Eye exam: Present: PERRL, conjuntiva pink, sclera anicteric Pupils: Present: PERRL - Neck Neck exam general surgery: Present: supple, trachea midline. Absent: lymphadenopathy - Respiratory Respiratory exam: Present: CTAB. Absent: accessory muscle use, rales, rhonchi, wheezes - Cardiovascular Cardiovascular exam: Present: RRR, +S1, +S2. Absent: diastolic murmur, gallop, rubs, systolic murmur - GI/Abdominal GI/Abdominal exam: Present: normal bowel sounds, soft, no peritoneal signs. Absent: distended, tenderness - Extremities Exam Extremities exam: Present: warm, radial pulses palpable and symetrical. Absent : calf tenderness, cyanotic, pedal edema - Neurological Exam Neurological exam: Present: CN II-XII intact, oriented X3, no focal deficits. Absent: pronater drift, facial droop, speech deficit - Skin Skin exam: Present: dry, intact - VTE Reasons for not Prescribing Prophylaxis: Treatment not Indicated - Low risk for VTE
--- NOTE | 2016-11-24 21:11 | Electrocardiograph Report ---
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
--- NOTE | 2016-11-25 15:41 | Invasive Diagnostic Lab ---
Name: Ailyn Merritt Date of Study: 11/23/2016 Date: 1965 Ht: 157.0 cm /61.8 in Medical Record#: [id number] Age: 51 Wt: 81.1 kg / 178.57 lb Account/Order#: [id number] Gender: Female BSA: 1.82 Order #: [id number] Fluoro Dose: 459 mGy BMI: 32.86 Procedure Physician: Selvin Sawant MD, FACC Referring MD: Josef Jennings MD Referring MD: Procedures Performed: LEFT HEART CATH Stent w/ PTCA Single Major Vessel Indications: Unstable Angina, SOB Impressions: There is severe one vessel coronary artery disease. The left ventricle is normal and has normal contractility EF 60% Patient had successful PTCA/Drug-Eluting Stent placement in the mid RCA. History/Risk Factors: PVD CP TOBACCO ABUSE SOB Hypertension Procedure Access obtained in the right Radial artery by percutaneous puncture Complications: None Contrast: Isovue 103ml Hemodynamics: Pressures Site Systolic/ A Wave Diastolic/ V Wave End Diastolic/ Mean HR AO 89 63 76 80 LV 97 3 8 100 LV 102 -2 8 89 AO 85 30 63 83 AO 89 64 76 79 LV Ventriculography Ejection Method: LV Gram Ejection Fraction: 60% Wall Motion: ROJAS Anterobasal Normal Anterolateral Normal Apical: Normal Inferoapical Normal Inferobasal Normal Coronary Dominance: right Lesion Findings/Interventions * Left Main Coronary Artery The LMCA is angiographically free of disease. * Left Anterior Descending The LAD is angiographically free of disease. The 1st Diagonal is angiographically free of disease. * Circumflex There is a 50% stenosis in the Mid Circumflex. The lesion has a MITZY flow of 3. * Right Coronary Artery There is a 80% stenosis in the Mid RCA. The lesion has a MITZY flow of 3. Interventional Device(s) Vessel Segment Type Name Diameter (mm) Length (mm) Mid RCA balloon Emerge Monorail 2.5 20 Mid RCA drug-eluting stent Synergy 3.5 32 Updated by Taylor Jimenez RN on 11/23/2016 3:37:03 PM Selvin Sawant MD, FACC electronically signed on 11/25/2016 3:37:31 PM with status of Final
--- NOTE | 2016-11-26 09:52 | Invasive Diagnostic Lab Proc ---
Name: Ailyn Merritt Date of Study: 11/23/2016 Date: 1965 Ht: 61.8in Medical Record#: [id number] Age: 51 Wt: 178.57lb Gender: Female BSA: 1.82 Order #: [id number] BMI: 32.86 Physicians Procedure Physician: eSlvin Sawant MD, [facility] Referring MD: Josef Jennings MD Referring MD: Staff Name Position Time In Terrance Saldivar RN Electric Meter Inspector 02:23 PM Ina Ye RT (R) Scrub 02:23 PM Taylor Jimeenz RN Monitor 02:24 PM Indications Indication Unstable Angina SOB Procedures Performed Procedure L HRT ARTERY/VENTRICLE ANGIO PRQ CARD TRACY STENT W/ANGIO 1 VSL MOD SED OTH PHYS/QHP 5/>YRS MOD SED OTHER PHYS/QHP EA MOD SED OTHER PHYS/QHP EA MOD SED OTHER PHYS/QHP EA MOD SED OTHER PHYS/QHP EA Pre-Procedure Checklist Informed consent is complete signed and on chart. H\\T\\P is on chart. ID band is on and ID verified with patient. Patient NPO for procedure The procedure was described for the patient and questions were answered. Blood Pressure: 159/78 ECG is on chart. Rhythm: NSR Plan of Care Patient will tolerate the procedure without complications. Adequate level of comfort will be maintained. Hemodynamics will remain stable Patient will recover from procedure without complications. Respiratory function will be maintained. Cardiac rhythm will remain stable. Patient temperature will be maintained. Patient and/or family have verbalized understanding of the procedure. Patient Education Chief Complaint/Reason for Test: Cardiac Cath Developmental Category: Adult (18-64 years) Developmentally Appropriate for Age: Yes Learning Barriers: None Education Needs: Procedure Education Method: Verbal Information Taught: Cardiac Cath Educational Evaluation: Able to repeat information Intravenous Access Time IV Size Location DC'd Fluid/Drip Rate Units RN 02:32 PM 20g 1 1/4" Patent On Arrival Lt Wrist 0.9NaCl 25 ml/hr Terrance Saldivar RN Allergies hydrocodone Oxycodone acetaminophen PERCOCET, VICODIN Vital Signs Time BP (mmHg) HR (bpm) O2 Sat. RR (bpm) LOC 02:24 PM / % 5 = Fully awake and oriented or at pre-proc level 02:24 PM / % 5 = Fully awake and oriented or at pre-proc level 02:40 PM / % 5 = Fully awake and oriented or at pre-proc level 02:42 PM / % 5 = Fully awake and oriented or at pre-proc level 02:47 PM / % 5 = Fully awake and oriented or at pre-proc level 03:03 PM / % 5 = Fully awake and oriented or at pre-proc level 03:03 PM / % 5 = Fully awake and oriented or at pre-proc level 03:16 PM / % 5 = Fully awake and oriented or at pre-proc level 03:17 PM / % 5 = Fully awake and oriented or at pre-proc level 02:28 PM 159 / 78 72 98 % 20 02:32 PM 136 / 75 75 96 % 19 02:37 PM 131 / 74 74 95 % 19 02:42 PM 137 / 66 76 94 % 21 02:47 PM 109 / 71 72 97 % 16 02:52 PM 103 / 52 80 91 % 14 02:57 PM 105 / 44 76 93 % 19 03:02 PM 97 / 53 77 93 % 14 03:07 PM 107 / 60 77 91 % 20 03:12 PM 132 / 66 76 95 % 17 03:17 PM 142 / 78 76 97 % 16 03:22 PM 154 / 76 76 96 % 17 03:27 PM 169 / 85 % Procedural Medications Time Medication Dose Units Method Given By 02:28 PM Versed 2 mg Intravenous [place], Terrance POSEY 02:28 PM Fentanyl 50 mcg Intravenous [place], Terrance RN 02:40 PM Versed 2 mg Intravenous [place], Terrance RN 02:40 PM Fentanyl 25 mcg Intravenous [place], Terrance RN 02:44 PM Lidocaine 2% 0.5 ml Subcutaneous Selvin Sawant MD, FACC 02:45 PM Fentanyl 25 mcg Intravenous [place], Terrance RN 02:45 PM Versed 1 mg Intravenous [place], Terrance RN 02:45 PM Heparin 2000 units flush bowl 02:47 PM Heparin 4000 units Nitroglycerin 200 mcg Verapamil 2.5 mg Intraarterial Selvin Sawant MD, FACC 02:49 PM Versed 1 mg Intravenous [place], Terrance RN 03:20 PM Fentanyl 25 mcg Intravenous [place], Terrance RN 03:23 PM Plavix 600 mg Orally Dariusthorntej, Terrance RN 03:26 PM Aggrastat Bolus: 42 ml Intravenous HenthorneTerrance RN 03:26 PM Aggrastat 5mg/100ml 15 ml Intravenous Terrance Saldivar RN ASA Classification: CLASS II- Mild systemic disease (i.e. well-controlled diabetes, hypertension, asthma, cigarette smoking) Nimisha Score Preprocedure Postprocedure Activity 2- Moves 4 extremities sustained head lift Activity 2- Moves 4 extremities sustained head lift Circulation 2- SBP +/= 20 points of pre-anesthetic level Circulation 2- SBP +/= 20 points of pre-anesthetic level Consciousness 2- Awake and alert oriented x 3 Consciousness 2- Awake and alert oriented x 3 O2 Saturation 2- Able to maintain O2 satruation of 92% on room air O2 Saturation 2- Able to maintain O2 satruation of 92% on room air Respiratory 2- Able to deep breathe and cough well Respiratory 2- Able to deep breathe and cough well Total Score 10 Total Score 10 Contrast Agent: Isovue Diagnostic Contrast: 103 ml Total Contrast: 103 ml Fluoro Dose: 459 mGy Activated Clotting Time Time Seconds to Clot 03:08 PM 340 Procedure Log Time Note Enter By 02:23 PM Pt arrived to construction laborer 1 at 14:23 ejohnson 02:23 PM Terrance Saldivar RN Position: Electric Meter Inspector Time in: 14:23 ejohnson 02:24 PM Ina Ye RT (R) Position: Scrub Time in: 14:23 ejohnson 02:24 PM Taylor Jimenez RN Position: Monitor Time in: 14:24 ejohnson 02:24 PM Patient charges- Angio tray pack, Navilyst 3mm J, Pulse Oximetry and ACIST tubing and transducer ejohnson 02:24 PM Case Delayed No, inpatient ejohnson 02:24 PM Hair removed from procedure site in procedure lab using clippers. Right wrist prepped with Chloraprep by Ina Ye RT (R) then patient draped. Skin intact. ejohnson 02:24 PM ASA Class CLASS II- Mild systemic disease (i.e. well-controlled diabetes, hypertension, asthma, cigarette smoking) ejohnson 02:24 PM Meet and greet completed ejohnson 02:24 PM Sign in performed according to hospital policy. ejohnson 02:24 PM Procedure start 14:24 ejohnson 02:24 PM Time: 14:24 Oxygen on at 2 L/min per nasal cannula by Terrance Saldivar RN ejohgalo 02:24 PM Time: 14:24 Patient comfortable and pain free: Yes ejohnson 02:24 PM Time: 14:24LOC: 5 = Fully awake and oriented or at pre-proc level ejohnson 02:25 PM CathStat 02:26 PM Vitals capture started with the following parameters, Patient=Adult, Interval=5 min, Initial Fepejnba=068 mmHg, Deflation Rate=5 mmHg 02:27 PM Recorded ECG: HR=73 Condition=Condition 1 02:28 PM HR=72 bpm, NJIX=441/78 mmhg, SpO2=98.0 %, Resp=20 B/min, Comment=SR 02: PM Time: 14: Versed 2 mg Intravenous Given by Terrance Saldivar RN 02: PM Time: 14: Fentanyl 50 mcg Intravenous Given by Terrance Saldivar RN 02:32 PM HR=75 bpm, ZXLH=342/75 mmhg, SpO2=96.0 %, Resp=19 B/min, Comment=SR 02:35 PM Recorded ECG: HR=69 Condition=Condition 1 02:35 PM Pressure channel 1 zeroed. 02:37 PM HR=74 bpm, MXOO=237/74 mmhg, SpO2=95.0 %, Resp=19 B/min, Comment=SR 02:40 PM Time: 14:24LOC: 5 = Fully awake and oriented or at pre-proc level ejohnson 02:40 PM Time: 14:24 Patient comfortable and pain free: Yes ejohnson 02:40 PM Time: 14:40 Versed 2 mg Intravenous Given by Terrance Saldivar RNohgalo 02:40 PM Time: 14:40 Fentanyl 25 mcg Intravenous Given by Terrance Saldivar RNohgalo 02:41 PM Time out performed according to hospital policy ejohnson 02:42 PM Time: 14:40LOC: 5 = Fully awake and oriented or at pre-proc level ejohnson 02:42 PM Time: 14:40 Patient comfortable and pain free: Yes ejohnson 02:42 PM HR=76 bpm, FJJB=003/66 mmhg, SpO2=94.0 %, Resp=21 B/min, Comment=SR 02:44 PM Time: 14:44 0.5 ml Lidocaine 2% to right radial Subcutaneous Given by Selvin Sawant MD, [facility] ejcanson 02:45 PM Time: 14:45 Fentanyl 25 mcg Intravenous Given by Terrance Saldivar RN ejcansbaudilio 02:45 PM Time: 14:45 Versed 1 mg Intravenous Given by Terrance Saldivar RN ejcagalo 02:46 PM Time: 14:45 Heparin 2000 units flush bowl [facility] PM Access obtained by percutaneous puncture. 6Fr 10cm Terumo Glidesheath sheath placed in right Radial artery. [id number] ejohnson 02:47 PM Time: 14:47 Patient given 4,000 units Heparin, 200 mcg Nitroglycerin, and 2.5 mg Verapamil Intraarterial by Selvin Sawant MD, [facility] ejohnson 02:47 PM HR=72 bpm, FRUV=361/71 mmhg, SpO2=97.0 %, Resp=16 B/min, Comment=SR 02:47 PM Time: 14:42LOC: 5 = Fully awake and oriented or at pre-proc level ejohnson 02:47 PM Time: 14:42 Patient comfortable and pain free: Yes ejohnson 02:48 PM 5Fr TIG catheter inserted over the wire [facility] ejohnson 02:49 PM 0.035 180cm Bentson wire wire [id number] ejohnson 02:49 PM Time: 14:49 Versed 1 mg Intravenous Given by Terrance Saldivar RN ejcansbaudilio 02:51 PM Recorded Pressure: Ao, HR=80, Condition=Condition 1 (Aorta) Ao 89/63/76 02:51 PM LCA angiography performed in multiple views. ejohnson 02:52 PM HR=80 bpm, CCLS=436/52 mmhg, SpO2=91.0 %, Resp=14 B/min, Comment=SR 02:53 PM Recorded Pressure: LV, IL=861, Condition=Condition 1 (Left Ventricle) LV 97/3/8 02:53 PM Catheter selectively placed in left ventricle ejohnson 02:53 PM Bolus angiogram of left Ventricle complete: 10 ml/sec for a total of 30 mls ejohnson 02:53 PM Recorded Pressure: LV, Ao, HR=86, Condition=Condition 1 (Left Ventricle) LV 102/-2/8, (Aorta) Ao 85/30/63 02:54 PM Recorded Pressure: Ao, HR=79, Condition=Condition 1 (Aorta) Ao 89/64/76 02:54 PM RCA angiography performed in multiple views. ejohnson 02:55 PM Coronary Dominance: right ejohnson 02:55 PM Lesion found in Mid RCA. Pre Stenosis: 80 Pre MITZY Flow: 3: Complete and Brisk Flow/Perfusion ejohnson 02:55 PM Right Coronary, Right Posterior Descending Arteries with Right Posterolateral and Acute Marginal branches with 80 % stenosis. ejohnson 02:55 PM Catheter removed ejohnson 02:57 PM HR=76 bpm, LVGG=650/44 mmhg, SpO2=93.0 %, Resp=19 B/min, Comment=SR 02:57 PM 5Fr FL 4 catheter inserted over the wire [id number] ejohnson 02:59 PM LCA angiography performed in multiple views. ejohnson 02:59 PM Lesion found in Mid Circumflex. Pre Stenosis: 50 Pre MITZY Flow: 3: Complete and Brisk Flow/Perfusion ejohnson 02:59 PM Circumflex, Obtuse Marginal, Left Posterior Descending, and Left Posterolateral Coronary Arteries with 50 % stenosis. ejohnson 03:00 PM Catheter removed ejohnson 03:01 PM Inflation device was opened. ejohnson 03:02 PM HR=77 bpm, NIBP=97/53 mmhg, SpO2=93.0 %, Resp=14 B/min, Comment=SR 03:03 PM Time: 14:47 Patient comfortable and pain free: Yes ejohnson 03:03 PM Time: 14:47LOC: 5 = Fully awake and oriented or at pre-proc level ejohnson 03:03 PM 6Fr IM Runway guide catheter was used to cannulate the PCI vessel successfully. reused? No ejohnson 03:03 PM Time: 15:03 Patient comfortable and pain free: Yes ejohnson 03:03 PM Time: 15:03LOC: 5 = Fully awake and oriented or at pre-proc level ejohnson 03:04 PM Guide catheter removed intact. ejohnson 03:05 PM 5Fr JR 4 Convey guide catheter was used to cannulate the PCI vessel successfully. reused? No ejohnson 03:06 PM .014 PT Graphix 180cm guide wire across target lesion- successful. reused? No ejohnson 03:07 PM HR=77 bpm, ZLID=019/60 mmhg, SpO2=91.0 %, Resp=20 B/min, Comment=SR 03:08 PM At 15:08 the ACT was 340 seconds. ejohnson 03:10 PM 2.5 mm x 20 mm Emerge Monorail balloon across target lesion- successful. reused? No ejohnson 03:11 PM Balloon inflated @ 14 deloris for 18 seconds ejohnson 03:12 PM Balloon catheter removed intact. ejohnson 03:12 PM HR=76 bpm, VBVA=326/66 mmhg, SpO2=95.0 %, Resp=17 B/min, Comment=SR 03:13 PM 3.5mm x 32mm Synergy drug-eluting stent across target lesion- successful Lot #[id number] ejohnson 03:13 PM Time: 15:03 Patient comfortable and pain free: Yes ejohnson 03:13 PM Time: 15:03LOC: 5 = Fully awake and oriented or at pre-proc level ejohnson 03:15 PM Stent deployed @ 12 deloris for 13 seconds ejohnson 03:16 PM Stent delivery system removed intact. ejohnson 03:16 PM Time: 15:16 Patient comfortable and pain free: Yes ejohnson 03:17 PM Time: 15:16LOC: 5 = Fully awake and oriented or at pre-proc level ejohnson 03:17 PM 3.5 mm x 20mm NC Emerge balloon across target lesion- successful. reused? No ejohnson 03:17 PM HR=76 bpm, KDWW=252/78 mmhg, SpO2=97.0 %, Resp=16 B/min, Comment=SR 03:18 PM Balloon inflated @ 16 deloris for 10 seconds ejohnson 03:19 PM Balloon inflated @ 12 deloris for 6 seconds ejohnson 03:20 PM Time: 15:20 Fentanyl 25 mcg Intravenous Given by Terrance Saldivar RN ejohnson 03:21 PM Balloon catheter removed intact. ejohnson 03:21 PM Guide wire removed intact. ejohnson 03:21 PM Guide catheter removed intact. ejohnson 03:22 PM Procedure completed at 15:22 ejohnson 03:22 PM Sign out completed: Radiation Dose 459.33 mGy Fluoro Time: 9.6 Isovue 370 - 200ml contrast 103 ml given by Selvin Sawant MD, [facility]. Complications: NoneCardiac Rehab Consult needed: YesConfirmed administered medications: Yes ejohnson 03:22 PM HR=76 bpm, LRCR=476/76 mmhg, SpO2=96.0 %, Resp=17 B/min, Comment=SR 03:22 PM Isovue 370 - 200ml,1 Bottle(s) used. ejohnson 03:22 PM Arterial sheath pulled, Vasc Band closure device used and was Successful S/N. ejohnson 03:22 PM Post ECG NSR ejohnson 03:22 PM Post Blood Pressure 154/76 ejohnson 03:23 PM 15:23 Post Pulses Rt Radial 1+ ejohnson 03:23 PM Information taught PCI and Vasc Band ejohnson 03:23 PM 10 ml air in Vasc Band. ejohnson 03:23 PM Education needs Plan of Care and Responsibilities of Patient in Care ejohnson 03:23 PM Time: 15:23 Plavix 600 mg Orally Given by Terrance Saldivar RN ejohnson 03:23 PM Learning barriers :None ejohnson 03:24 PM Education Methods Verbal ejohnson 03:24 PM Education evaluation Able to repeat information ejohnson 03:24 PM Site status No bleeding/hematoma - Rt Wrist as reported by Ina Ye RT (R) at 15:24 ejohnson 03:24 PM Plavix, Effient or Brilinta given Yes ejohnson 03:24 PM Family placed in consult room. ejohnson 03:24 PM Complications: None ejohnson 03:26 PM Time: 15:26 Aggrastat Bolus: 42 ml Intravenous Given by Terrance Saldivar RN Gresham pump ejohnson 03:27 PM Time: 15:26 Aggrastat 5mg/100ml 15 ml Intravenous Given by Terrance Saldivar RN Gresham pump ejohnson 03:27 PM OUJC=687/85 mmhg, Comment=SR 03:31 PM Report given to Jose POSEY Pt taken to E Room #29. 15:30 ejohnson 03:31 PM Time: 15:16 Patient comfortable and pain free: Yes ejohnson 03:32 PM Time: 15:17LOC: 5 = Fully awake and oriented or at pre-proc level ejohnson 03:32 PM Time: 15:31 Patient comfortable and pain free: Yes ejohnson 03:38 PM Delay to floor No ejohnson 03:38 PM Patient out of room: 15:38 taken to Holding room for EKG due to 10/10 chest pain. Sophia Hector in Holding room and updated ejohnson Equipment Used Size Length Diameter Item Category ACT Other Angio tray pack Other Terumo Glidesheath sheath Bentson wire wire FL 4 catheter Britetip Guide catheter Glidewire wire Inflation kit Other Britetip Guide catheter ACT Other Emerge PTCA Dilatation Catheter Monorail Balloon Xience Lyn Rx Drug Eluting Stent Emerge PTCA Dilatation Catheter Monorail Balloon Isovue 370- 200ml Contrast Vasc Band Manual Compression Manual compression Gresham pump Other Complications Complication None Hemodynamics Pressures Site Systolic/A Wave Diastolic/V Wave Mean AO 89 63 76 LV 97 3 8 LV 102 -2 8 AO 85 30 63 AO 89 64 76 Post Procedure Information Blood Pressure: 154/76 mmHg Rhythm: NSR Post procedural instructions were given Closure Device Time Device Success/Fail 11/23/2016 3:23:00 PM Mechanical Compression Successful Site Checks Time Location Status Staff Sheath In? Note 03:24 PM Rt Wrist No bleeding/hematoma Ina Ye RT (R) Pulses Time Site Pre-Procedure Post-Procedure Note 11/23/2016 2:29:00 PM Bilateral DP \\T\\ PT 2+ 11/23/2016 2:29:00 PM Rt Radial 2+ 11/23/2016 2:29:00 PM Rt Radial Normal plethysmography's Test 3:23:00 PM Rt Radial 1+ Updated by Sophia Hector RT (R) on 11/26/2016 9:45:59 AM Sophia Hector RT electronically signed on 11/26/2016 9:47:28 AM with status of Final
== END 2016-11-24 14:50 | disposition home or self-care (01) ==
LOC: EMEROO 17:00 → 3ANU 17:00 → 2NENU 11-23 15:05
PROVIDERS: ADMIT Internal Medicine; ATTEND Internal Medicine

== ENCOUNTER 2017-08-16 17:24 | Observation (INO) ==
--- NOTE | 2017-08-16 17:51 | Emergency Department Note ---
Disposition Clinical Impression: Chest pain Qualifiers: Chest pain type: unspecified Qualified Code(s): R07.9 - Chest pain, unspecified Disposition: Admitted As Inpatient Condition: Fair Time of Disposition: 18:42 General Adult HPI - General Chief complaint: ED Chest Pain Stated complaint: chest discomfort/SOB Time Seen by Provider: 08/16/17 17:51 Source: patient Mode of arrival: ambulatory Limitations: no limitations Nursing Notes Reviewed: Yes Vital Signs Reviewed: Yes - History of Present Illness HPI Narrative: 52-year-old female presents to the ED with history of chest pain and heart catheterization done this year presents to the ED complaining of chest pain that started this morning. She states the chest pain is substernal pressure that about 4 out of 10 and radiates up into the right jaw and into the right arm. She says this feels the exact same time as last time she had a heart attack. She is complaining of nausea but no vomiting. She has no shortness of breath and does not change with exertion. She last week had a stress test as well as an echo done which were both normal but she said at her last heart attack the same thing occurred where one week prior she had normal stress test and echo but she had needed percent blockage in one of her arteries. She is on Plavix. She is complaining of no fevers, dysuria, changes in bowels, headaches , blurry vision, pain or tingling going down the arms or legs, changes in weight or any other complaints at this time. Pain Scale: 3 - Related Data Home Medications Medication Instructions Recorded Confirmed Aspirin [Lo-Dose Aspirin EC] 81 mg PO DAILY 10/03/16 08/16/17 Atorvastatin Calcium [Lipitor] 80 mg PO QPM 11/22/16 08/16/17 Sertraline [Zoloft] 50 mg PO QPM 11/22/16 08/16/17 Losartan [Cozaar] 25 mg PO DAILY 08/16/17 08/16/17 Previous Rx's Medication Instructions Recorded Clopidogrel [Plavix] 75 mg PO DAILY #90 tablet 11/24/16 Metoprolol [Lopressor] 12.5 mg PO BID #120 tablet 11/24/16 Nitroglycerin 0.4 mg SL Q5MIN PRN #120 tab.subl 11/24/16 Allergies Allergy/AdvReac Type Severity Reaction Status Date / Time hydrocodone [From Vicodin] AdvReac Hives Verified 11/22/16 10:54 Oxycodone [From Percocet] AdvReac Difficulty Verified 11/22/16 10:54 Breathing Review of Systems: 10 point review of systems done and negative unless otherwise stated in the history of present illness. All systems ED: reviewed and negative except as stated. Review of Systems: As Per HPI Constitutional: Denies: fever Cardiovascular: Reports: chest pain. Denies: palpitations Gastrointestinal: Reports: nausea. 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 - Social History Smoking Status: Current every day smoker Smokeless Tobacco Status: No Alcohol use: Reports: none Drug use: Reports: none Physical Exam - General Limitations: no limitations General appearance: alert, in no apparent distress - Head Head exam: atraumatic, normocephalic, normal inspection - Eye Eye exam: Present: normal appearance, PERRL, EOMI - ENT ENT exam: normal exam, normal oropharynx, mucous membranes moist - Neck Neck exam: Present: normal inspection, full ROM, trachea midline - Chest Chest inspection: Present: normal inspection, symmetric chest wall rise - Respiratory Respiratory exam: Present: normal lung sounds bilaterally - Cardiovascular Cardiovascular exam: Present: regular rate, normal rhythm, normal heart sounds - Abdominal Exam Abdominal exam: Present: soft, Non-Tender. Absent: tenderness, distention, guarding, rebound, rigidity - Extremities Exam Extremities exam: Present: normal inspection, full ROM. Absent: tenderness, pedal edema - Expanded Lower Extremity Exam Gait: observed and normal - Back Exam Back exam: Present: normal inspection, full ROM. Absent: tenderness - Neurological Exam Neurological exam: Present: alert, oriented X3 - Skin Skin exam: Present: warm, dry, intact, normal color Course Course Narrative: In triage they did chest x-ray, EKG, CBC, CMP as well as a troponin. After seeing her reside at on a nitroglycerin and aspirin to help with her pain. We will also place an IV and do continuous monitoring. Patient is going to be admitted for chest pain rule out. Patient is okay with this plan. - Consultations Consultation #1: Spoke with the hospitalist who agreed to admit the patient for chest pain rule out. They asked that we consult cardiology. At this time we did consult cardiology. Time: 18:40 Consultation #2: Spoke with cardiology, Dr. Blandon who agreed that they would see the patient. He had no rectal patient at this time. Time: 19:07 Vital Signs Temperature 98.8 F 08/16/17 17:28 Pulse Rate 95 08/16/17 17:28 Respiratory Rate 16 08/16/17 17:28 Blood Pressure 146/79 08/16/17 17:28 O2 Sat by Pulse Oximetry 96 08/16/17 17:28 Temperature 98.8 F 08/16/17 17:28 Pulse Rate 84 08/16/17 18:16 Respiratory Rate 20 08/16/17 18:16 Blood Pressure 142/81 08/16/17 18:16 O2 Sat by Pulse Oximetry 94 08/16/17 18:16 Oxygen Delivery Oxygen Delivery Room Air Medical Decision Making - MDM Narrative Medical decision making narrative: 52-year-old female presents to the ED complaining of chest pain. She states this feels exactly like last time she had her heart attack even though she did have a normal stress tests and echo done the previous time one week before that were normal. She did have echo and stress test done one week ago that also were negative last week. She is having nausea but no vomiting and the chest pain is radiating up to the right shoulder and neck. These atypical symptoms and these being the exact same as last time she had a heart attack we feel that admission is most likely needed. Her troponin and respiratory laboratories are negative chest x-ray was normal and EKG only showed old changes with Q waves in the inferior leads. These were also on the old EKG. We are going to admit the patient to the hospital service and consult cardiology. Patient is okay with this plan. Chest X-Ray 08/16/17 17:33 IMPRESSION: 1. No active pulmonary disease. D/ / Yonathan Mccain MD / Yonathan Mccain MD Interpreting Provider: Yonathan Mccain MD - Medical Records Medical records reviewed: Yes I reviewed the patient's medical records. - Lab Data Lab results reviewed: Yes I reviewed the patient's lab results. Result diagrams: 08/16/17 17:41 08/16/17 17:41 Lab Results 08/16/17 08/16/17 08/16/17 Range/Units 17:41 17:41 17:41 WBC 9.7 (4.3-11.1) K/mcL RBC 4.95 (3.82-4.97) M/mcL Hgb 15.7 H (11.5-15.4) g/dL Hct 47.2 H (35.3-44.9) % MCV 95.4 (83.0-100.0) fL MCH 31.7 (28.0-33.3) pg MCHC 33.3 (31.6-35.5) g/dL RDW 13.3 (11.5-14.5) % Plt Count 246 (140-400) K/mcL MPV 9.9 (9.4-12.4) fL Immature Gran % 0.4 (0-4) % Seg Neutrophils % 47.0 % Lymphocytes % 39.4 % Monocytes % 5.6 % Eosinophils % 6.9 % Basophils % 0.7 % Neutrophils # 4.5 (1.6-8.9) K/mcL Lymphocytes # 3.8 (0.6-4.6) K/mcL Monocytes # 0.5 (0.0-1.3) K/mcL Eosinophils # 0.7 H (0.0-0.6) K/mcL Basophils # 0.1 (0.0-0.2) K/mcL Sodium 143 (136-145) mEq/L Potassium 4.5 (3.5-4.5) mEq/L Chloride 105 (98-109) mEq/L Carbon Dioxide 25 (19-29) mEq/L BUN 24 H (7-20) mg/dL Creatinine 0.91 (0.57-1.11) mg/dL Est GFR ( Amer) > 60 (> 60) Est GFR (Non-Af Amer) > 60 (> 60) BUN/Creatinine Ratio 26 (6-26) Glucose 165 H (70-99) mg/dL Calculated Osmolality 304 H (280-300) Calcium 9.8 (8.6-10.8) mg/dL Troponin I 0.00 (0-0.03) ng/mL - Radiology Data Radiology results reviewed: Yes I reviewed the patient's radiology results. - EKG Data EKG #1 EKG attestation: Yes I reviewed and interpreted this EKG. EKG results narrative: EKG done at 1728 and reviewed by myself and attending shows normal sinus rhythm a rate of 89, GA interval 134, QRS 84, QTC 399 with normal axis. There are no acute ST changes, T-wave changes. There is Q waves in leads II, III, and F aVF most likely from an old infarction. No Tyshawn abuse at [facility]. Compared with old EKG done 11/23/16 which also shows normal sinus rhythm with no acute changes and the Q waves in II, III, and F aVF. Overall impression is normal sinus rhythm with no acute changes. EKG shows normal: sinus rhythm, axis, intervals, QRS complexes, ST-T waves Rate: normal Rhythm: NSR [place]/QRS: normal When compared to previous EKG there are: no significant changes Interpretation: no acute changes, normal EKG
[2017-08-16 17:53] LABS: Basophils # 0.1 K/mcL (0.0-0.2); Basophils % 0.7 %; Eosinophils # 0.7 K/mcL (0.0-0.6); Eosinophils % 6.9 %; Hematocrit 47.2 % (35.3-44.9); Hemoglobin 15.7 g/dL (11.5-15.4); Immature Granulocytes % 0.4 % (0-4); Lymphocytes # 3.8 K/mcL (0.6-4.6); Lymphocytes % 39.4 %; Mean Corpuscular HGB Conc 33.3 g/dL (31.6-35.5); Mean Corpuscular Hemoglobin 31.7 pg (28.0-33.3); Mean Corpuscular Volume 95.4 fL (83.0-100.0); Mean Platelet Volume 9.9 fL (9.4-12.4); Monocytes # 0.5 K/mcL (0.0-1.3); Monocytes % 5.6 %; Neutrophils # 4.5 K/mcL (1.6-8.9); Platelet Count 246 K/mcL (140-400); Red Blood Count 4.95 M/mcL (3.82-4.97); Red Cell Distribution Width 13.3 % (11.5-14.5)
--- NOTE | 2017-08-16 17:57 | Emergency Department Note ---
Disposition Clinical Impression: Chest pain Disposition: Admitted As Inpatient Condition: Fair General Adult HPI - General Chief complaint: ED Chest Pain Stated complaint: chest discomfort/SOB Time Seen by Provider: 08/16/17 17:51 Source: patient Mode of arrival: ambulatory Limitations: no limitations - History of Present Illness Pain Scale: 3 - Related Data Home Medications Medication Instructions Recorded Confirmed Aspirin [Lo-Dose Aspirin EC] 81 mg PO DAILY 10/03/16 08/16/17 Atorvastatin Calcium [Lipitor] 80 mg PO QPM 11/22/16 08/16/17 Sertraline [Zoloft] 50 mg PO QPM 11/22/16 08/16/17 Losartan [Cozaar] 25 mg PO DAILY 08/16/17 08/16/17 Previous Rx's Medication Instructions Recorded Clopidogrel [Plavix] 75 mg PO DAILY #90 tablet 11/24/16 Metoprolol [Lopressor] 12.5 mg PO BID #120 tablet 11/24/16 Nitroglycerin 0.4 mg SL Q5MIN PRN #120 tab.subl 11/24/16 Allergies Allergy/AdvReac Type Severity Reaction Status Date / Time hydrocodone [From Vicodin] AdvReac Hives Verified 11/22/16 10:54 Oxycodone [From Percocet] AdvReac Difficulty Verified 11/22/16 10:54 Breathing Past Medical History - Past Medical History Medical history: Reports: hyperlipidemia, hypertension, other Surgical history: Reports: cholecystectomy, hysterectomy Psychiatric history: Reports: no psych history 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 - Social History Smoking Status: Current every day smoker Smokeless Tobacco Status: No Alcohol use: Reports: none Drug use: Reports: none Physical Exam - General Limitations: no limitations General appearance: alert, in no apparent distress Course Vital Signs Temperature 98.8 F 08/16/17 17:28 Pulse Rate 95 08/16/17 17:28 Respiratory Rate 16 08/16/17 17:28 Blood Pressure 146/79 08/16/17 17:28 O2 Sat by Pulse Oximetry 96 08/16/17 17:28 Temperature 98.1 F 08/17/17 11:18 Pulse Rate 68 08/17/17 11:18 Respiratory Rate 16 08/17/17 11:18 Blood Pressure 122/81 08/17/17 11:18 O2 Sat by Pulse Oximetry 95 08/17/17 11:18 Oxygen Delivery Oxygen Delivery Room Air Medical Decision Making - Lab Data Result diagrams: 08/17/17 00:10 08/17/17 00:10 Lab Results 08/16/17 08/16/17 08/16/17 Range/Units 17:41 17:41 17:41 WBC 9.7 (4.3-11.1) K/mcL RBC 4.95 (3.82-4.97) M/mcL Hgb 15.7 H (11.5-15.4) g/dL Hct 47.2 H (35.3-44.9) % MCV 95.4 (83.0-100.0) fL MCH 31.7 (28.0-33.3) pg MCHC 33.3 (31.6-35.5) g/dL RDW 13.3 (11.5-14.5) % Plt Count 246 (140-400) K/mcL MPV 9.9 (9.4-12.4) fL Immature Gran % 0.4 (0-4) % Seg Neutrophils % 47.0 % Lymphocytes % 39.4 % Monocytes % 5.6 % Eosinophils % 6.9 % Basophils % 0.7 % Neutrophils # 4.5 (1.6-8.9) K/mcL Lymphocytes # 3.8 (0.6-4.6) K/mcL Monocytes # 0.5 (0.0-1.3) K/mcL Eosinophils # 0.7 H (0.0-0.6) K/mcL Basophils # 0.1 (0.0-0.2) K/mcL Sodium 143 (136-145) mEq/L Potassium 4.5 (3.5-4.5) mEq/L Chloride 105 (98-109) mEq/L Carbon Dioxide 25 (19-29) mEq/L BUN 24 H (7-20) mg/dL Creatinine 0.91 (0.57-1.11) mg/dL Est GFR ( Amer) > 60 (> 60) Est GFR (Non-Af Amer) > 60 (> 60) BUN/Creatinine Ratio 26 (6-26) Glucose 165 H (70-99) mg/dL POC Glucose (58-89) Calculated Osmolality 304 H (280-300) Calcium 9.8 (8.6-10.8) mg/dL Troponin I 0.00 (0-0.03) ng/mL 08/16/17 Range/Units 19:59 WBC (4.3-11.1) K/mcL RBC (3.82-4.97) M/mcL Hgb (11.5-15.4) g/dL Hct (35.3-44.9) % MCV (83.0-100.0) fL MCH (28.0-33.3) pg MCHC (31.6-35.5) g/dL RDW (11.5-14.5) % Plt Count (140-400) K/mcL MPV (9.4-12.4) fL Immature Gran % (0-4) % Seg Neutrophils % % Lymphocytes % % Monocytes % % Eosinophils % % Basophils % % Neutrophils # (1.6-8.9) K/mcL Lymphocytes # (0.6-4.6) K/mcL Monocytes # (0.0-1.3) K/mcL Eosinophils # (0.0-0.6) K/mcL Basophils # (0.0-0.2) K/mcL Sodium (136-145) mEq/L Potassium (3.5-4.5) mEq/L Chloride (98-109) mEq/L Carbon Dioxide (19-29) mEq/L BUN (7-20) mg/dL Creatinine (0.57-1.11) mg/dL Est GFR ( Amer) (> 60) Est GFR (Non-Af Amer) (> 60) BUN/Creatinine Ratio (6-26) Glucose (70-99) mg/dL POC Glucose 122 H (58-89) Calculated Osmolality (280-300) Calcium (8.6-10.8) mg/dL Troponin I (0-0.03) ng/mL Attestation Statement - Attestation Attestation: I examined this patient and my medical decision-making was reviewed with the Resident Physician. I agree with the documented findings, disposition and treatment plan as described except to the extent set forth below. Face to face time provided Patient complains of chest discomfort. She states she has a prescription for nitroglycerin but does not take. I have reviewed her EKG and compared to previous. She appears mildly uncomfortable on exam. Triage note and vitals reviewed by me
[2017-08-16 18:04] LABS: BUN/Creatinine Ratio 26 (6-26); Blood Urea Nitrogen 24 mg/dL (7-20); Calcium 9.8 mg/dL (8.6-10.8); Carbon Dioxide 25 mEq/L (19-29); Chloride 105 mEq/L (98-109); Glucose 165 mg/dL (70-99); Osmolality,Calculated 304 (280-300); Potassium 4.5 mEq/L (3.5-4.5); Sodium 143 mEq/L (136-145); eGFR For African Americans > 60 (> 60); eGFR For Non-African Americans > 60 (> 60)
[2017-08-16] MEDS ORDERED: Nitroglycerin 0.4 MG TAB.SUBL SL PRN ×2 (18:04→22:48)
[2017-08-16] MEDS ORDERED: Aspirin 81 MG TAB.CHEW PO ONE (18:04)
[2017-08-16] MEDS ORDERED: Naloxone 0.4 MG/ML INJ IVP PRN (22:42)
[2017-08-16] MEDS ORDERED: Ondansetron 4 MG/2 ML VIAL IVP PRN (22:42)
[2017-08-16] MEDS ORDERED: Acetaminophen 325 MG TABLET PO PRN (22:42)
[2017-08-16] MEDS ORDERED: Insulin LISPRO 300 UNITS/3 ML VIAL SQ SCH (22:45)
[2017-08-16] MEDS ORDERED: *HR* Dextrose 50 % in Water (Syg) 50 ML SYRINGE IVP PRN (22:45)
[2017-08-16] MEDS ORDERED: D5% in Water 1,000 ML IVC PRN (22:45)
[2017-08-16] MEDS ORDERED: Dextrose Gel 15 GM PO PRN ×2 (22:45)
[2017-08-16] MEDS ORDERED: Heparin 25,000 UNIT/500 ML D5W 25,000 UNIT/500 ML MLS IVC SCH (23:00)
--- NOTE | 2017-08-16 23:26 | Internal Med History&Physical ---
Date of Encounter: 08/16/17 Time of Encounter: 22:00 Assessment and Plan (1) Chest pain Current visit: Yes Status: Acute Acute chest pain began this morning between 9 and 10 AM as pressure centralizing the chest and radiating up to her neck and right shoulder. Patient states same pain occurred before her previous heart catheterization with stent placement 1. Echocardiogram, nuclear stress test, and CHLOE done . 08/09 testing shows LVEF 65% with perfusion imaging negative for ischemia or infarct. Initial troponin 0.00. Will trend 2. Patient placed on continuous cardiac telemetry. Heparin drip started due to patient's current symptoms. Nitroglycerin PRN. Continue Plavix, Lipitor, Lopressor, and Cozaar. Cardiology consult ordered. Qualifiers: Chest pain type: other chest pain Qualified Code(s): R07.89 - Other chest pain; R07.8 - Other chest pain (2) Hyperglycemia Current visit: Yes Status: Acute Patient reports borderline diabetes but does not use oral medications or insulin. BG 165 on admission. BG checks ACHS. A1c ordered in a.m. labs. Administer low-dose correction sliding scale insulin with hypoglycemic protocol. (3) HLD (hyperlipidemia) Current visit: Yes Status: Chronic Hx of chronic HLD. Lipid panel ordered in a.m. labs. Continue patient's Lipitor. Qualifiers: Hyperlipidemia type: pure hypercholesterolemia Qualified Code(s): E78.00 - Pure hypercholesterolemia, unspecified; E78.0 - Pure hypercholesterolemia (4) HTN (hypertension) Current visit: Yes Status: Chronic Hx of chronic HTN. Monitor patient and vital signs and continue patient's Lopressor and Cozaar. Qualifiers: Hypertension type: essential hypertension Qualified Code(s): I10 - Essential (primary) hypertension (5) Tobacco abuse Current visit: Yes Status: Chronic Patient counseled on tobacco abuse and dangers to her health and current cardiac symptoms. Pt. not willing to quit at this time. Denies nicotine patch. (6) DVT prophylaxis Current visit: Yes Status: Acute Patient placed on low-dose heparin drip d/t current CP and symptoms, DVT prophylaxis. Internal Medicine - H&P: HPI Chief complaint: Chest pain Admitted From: Emergency Dept Plans for Post Hospital Care: Home History of present illness: Ms. Merritt is a 52 year old female with medical history of hyperlipidemia, hypertension, diabetes for which she does not use oral medications or insulin reports from the ED with chief complaint of chest pain that began this morning approximately 9:51 AM as a pressure in her central chest, moved up to her neck and right shoulder. Patient states her BP at that time was 165/96. She also states this is similar symptoms to her previous heart catheterization which required one stent. Patient reports she had an echo cardiogram, stress test, and CHLOE August 09 of this year. Patient reports chest pain but denies palpitations, abdominal pain, nausea, vomiting, recent illness, fever, chills, shortness of breath, changes in vision, unusual bleeding, headaches, numbness, tingling, lightheadedness, dizziness, presyncope, or syncope. Past Med Surg Social Fam HX - Past Medical History Source: patient, old records reviewed Medical history: hyperlipidemia, hypertension, other Psychiatric history: no psych history - Past Surgical History Surgical History: cholecystectomy, hysterectomy - Social History Smoking Status: Current every day smoker Packs per day: 1 PPD Smokeless Tobacco Status: No Alcohol use: none Drug use: none Occupational status: employed Current living situation: Home, With Family Activity Level: Independent ambulation Recent Out of Country Travel Within the Last 8 Weeks: No Exposure or Possible Exposure to Illness During Travel: No - Family History Father Race: Family Member Ethnicity: Non- Living Status: Age at : 60 Cause of : Stroke Hx Family Cardiac Disorders: Yes (CVA, Valve replacement, HTN) Hx Family Cancer: Yes (Breast) Hx Family Endocrine Disorder: Yes (DM) Hx Family Neurologic Disorders: Yes (CVA) Sister Race: Living Status: Age at : 47 Cause of : CVA Hx Family Cardiac Disorders: Yes (CVA) Hx Family Neurologic Disorders: Yes (CVA) Mother History Unknown: Yes Race: Family Member Ethnicity: Non- Internal Medicine - H&P: Meds Aspirin [Lo-Dose Aspirin EC] 81 mg PO DAILY 10/03/16 [History] Atorvastatin Calcium [Lipitor] 80 mg PO QPM 11/22/16 [History] Sertraline [Zoloft] 50 mg PO QPM 11/22/16 [History] Clopidogrel [Plavix] 75 mg PO DAILY #90 tablet 11/24/16 [Rx] Metoprolol [Lopressor] 12.5 mg PO BID #120 tablet 11/24/16 [Rx] Nitroglycerin 0.4 mg SL Q5MIN PRN #120 tab.subl 11/24/16 [Rx] Losartan [Cozaar] 25 mg PO DAILY 08/16/17 [History] 3 Allergy/AdvReac Type Severity Reaction Status Date / Time hydrocodone [From Vicodin] AdvReac Hives Verified 11/22/16 10:54 Oxycodone [From Percocet] AdvReac Difficulty Verified 11/22/16 10:54 Breathing All Systems PM: A 10-system review of systems was performed and is negative for pertinent findings except as documented above in the HPI. - Constitutional Constitutional: no chills, no fever(s), no night sweats - EENT Eyes: no change in vision, no discharge, no pain, no photophobia Ears: no ear discharge, no ear pain, no tinnitus Nose, mouth and throat: no dysphagia, no nasal discharge, no neck pain, no sore throat - Breasts Breasts: as per HPI - Cardiovascular Cardiovascular ROS IM: as per HPI, chest pain - Respiratory Respiratory: no cough, no dyspnea, no wheezing, no excessive phlegm production - Gastrointestinal Gastrointestinal: no abdominal pain, no diarrhea, no hematemesis, no hematochezia, no melena, no nausea, no vomiting - Genitourinary Genitourinary: no change in urinary stream, no dysuria, no flank pain, no hematuria Menstruation: as per HPI, post hysterectomy - Musculoskeletal Musculoskeletal ROS IM: no numbness, no tingling - Integumentary Integumentary IM: no rash, no unusual bruising - Neurological Neurological ROS: no confusion, no convulsions, no focal weakness, no numbness, no tingling, no tremor(s) - Psychiatric Psychiatric: as per HPI - Endocrine Endocrine IM: as per HPI - Hematologic/Lymphatic Hematologic/Lymphatic: no easy bruising - Allergic/Immunologic Allergic/Immunologic: as per HPI - Constitutional Vitals: Temp Pulse Resp BP Pulse Ox 97.8 F 67 16 103/54 96 08/16/17 22:51 08/16/17 22:51 08/16/17 22:51 08/16/17 22:51 08/16/17 22:51 General appearance: Present: cooperative, mild distress, A&O X 3, pleasant, obese, answers questions appropriately - Head Head exam: Present: atraumatic, normocephalic - Eye Eye exam: Present: PERRL, conjuntiva pink, sclera anicteric Pupils: Present: PERRL - ENT ENT exam: Present: normal exam, normal external ear exam - Neck Neck exam general surgery: Present: normal inspection, supple, trachea midline. Absent: lymphadenopathy - Respiratory Respiratory exam: Present: wheezes. Absent: accessory muscle use, rales, rhonchi - Cardiovascular Cardiovascular exam: Present: RRR, +S1, +S2. Absent: diastolic murmur, gallop, rubs, systolic murmur - GI/Abdominal GI/Abdominal exam: Present: normal bowel sounds, soft, no peritoneal signs. Absent: distended, tenderness - Rectal Rectal exam: Present: deferred - Additional comments: exam deferred. - Extremities Exam Extremities exam: Present: warm, radial pulses palpable and symmetrical. Absent : calf tenderness, cyanotic, pedal edema - Back Exam Back exam: Present: normal inspection - Neurological Exam Neurological exam: Present: CN II-XII intact, oriented X3, no focal deficits. Absent: pronater drift, facial droop, speech deficit - Psychiatric Psychiatric exam: Present: normal affect, normal mood - Skin Skin exam: Present: dry, intact Internal Med - H&P Results - Labs CBC & Chem 7: 08/16/17 17:41 08/16/17 17:41 - EKG Data EKG shows normal: sinus rhythm - EKG Data Prior EKG available for review: yes Interpretation IM: suggestive of ischemia EKG comments: 08/16/17 23:35 EKG dated 11/23/16 shows sinus rhythm with short CO interval and probable inferior myocardial infarction, probably old. EKG dated 08/16/17 shows sinus rhythm with possible inferior myocardial infarction, probably old. - Diagnostic Studies Chest x-ray Additional comments: Impressions Chest X-Ray 08/16/17 17:33 IMPRESSION: 1. No active pulmonary disease. D/ / Yonathan Mccain MD / Yonathan Mccain MD Interpreting Provider: Yonathan Mccain MD
[2017-08-16] MEDS ORDERED: Ipratropium/Albuterol Neb 3 ML IH PRN (23:34)
--- NOTE | 2017-08-17 00:47 | Event Note ---
Date of Encounter: 08/17/17 Time of Encounter: 00:46 Patient seen and examined with nurse practitioner. Patient presents with chest pain. EKG shows .[address] segment shifts. Initial troponin normal. Will start patient on heparin drip. Serial troponin. Cardiology evaluation.
[2017-08-17 02:15] LABS: Basophils # 0.1 K/mcL (0.0-0.2); Basophils % 0.9 %; Eosinophils # 0.8 K/mcL (0.0-0.6); Eosinophils % 8.8 %; Hematocrit 44.9 % (35.3-44.9); Hemoglobin 14.9 g/dL (11.5-15.4); Immature Granulocytes % 0.4 % (0-4); Lymphocytes # 4.4 K/mcL (0.6-4.6); Lymphocytes % 46.4 %; Mean Corpuscular HGB Conc 33.2 g/dL (31.6-35.5); Mean Corpuscular Hemoglobin 31.4 pg (28.0-33.3); Mean Corpuscular Volume 94.7 fL (83.0-100.0); Mean Platelet Volume 10.4 fL (9.4-12.4); Monocytes # 0.5 K/mcL (0.0-1.3); Monocytes % 5.6 %; Neutrophils # 3.6 K/mcL (1.6-8.9); Platelet Count 229 K/mcL (140-400); Red Blood Count 4.74 M/mcL (3.82-4.97); Red Cell Distribution Width 13.6 % (11.5-14.5); Segmented Neutrophils % 37.9 %
[2017-08-17 02:30] LABS: Alanine Aminotransferase 14 Units/L (0-55); Albumin 3.4 g/dL (3.5-5.0); Alkaline Phosphatase 118 Units/L (38-126); Aspartate Amino Transferase 12 Units/L (5-34); BUN/Creatinine Ratio 29 (6-26); Bilirubin,Total 0.5 mg/dL (0.2-1.2); Blood Urea Nitrogen 24 mg/dL (7-20); Calcium 8.9 mg/dL (8.6-10.8); Carbon Dioxide 23 mEq/L (19-29); Chloride 107 mEq/L (98-109); Chol/HDL Ratio 3.9 (0-4.9); Cholesterol 117 mg/dL (< 200); Globulin 3.3 g/dL (2.4-3.5); Glucose 133 mg/dL (70-99); HDL Cholesterol 30 mg/dL (40-59); LDL Cholesterol,Calculated 44 mg/dL (0-99); Magnesium 2.3 mg/dL (1.6-2.6); Osmolality,Calculated 298 (280-300); Potassium 3.9 mEq/L (3.5-4.5); Sodium 141 mEq/L (136-145); Total Protein 6.7 g/dL (6.0-8.3); Triglycerides 216 mg/dL (< 150); eGFR For African Americans > 60 (> 60); eGFR For Non-African Americans > 60 (> 60)
[2017-08-17 03:00] LABS: INR 0.9; Prothrombin Time 9.7 Seconds (9.4-12.1)
[2017-08-17 03:03] LABS: Activated Partial Thrombo Time 29.3 Seconds (26.0-36.0)
[2017-08-17] MEDS ORDERED: Pantoprazole 40 MG VIAL IVP SCH (06:30)
[2017-08-17] MEDS: Insulin LISPRO 300 UNITS/3 ML VIAL SQ SCH ×3 (08:52→17:50)
--- NOTE | 2017-08-17 08:56 | Cardiology Consult Note ---
Date of Encounter: 08/17/17 Time of Encounter: 09:00 Assessment and Plan (1) Chest pain, rule out acute myocardial infarction Current Visit: No Status: Acute Per Cardiology: Atypical chest pain, symptoms occurring mainly at rest. Troponins 0.003. Recent echo in outpatient setting last week showed EF preserved at 65%, NSWMA, no significant valvular dysfunction. Patient had outpatient low-level nuclear stress test last week as well with perfusion imaging negative for ischemia or infarct. Currently CP free. Has not utilized nitroglycerin glycerin pills. We' ll add long-acting nitrate. ECG with no significant signs of ischemia and comparable to baseline. We'll discontinue heparin drip. Will discuss with Dr. Houston regarding potential repeat ischemic evaluation, however suspect medical management and close follow-up in outpatient setting. Patient agreeable to plan. All questions answered. (2) CAD (coronary artery disease) Current Visit: Yes Status: Chronic Per Cardiology: Last heart catheterization October 2016 with negative nuclear stress test at that time. Patient underwent PTCA/drug-eluting stent to mid RCA 80% lesion. Had remaining proximal LAD 50% and mid circumflex 50% lesions. Again troponins negative and recent negative stress test and echo with no significant abnormalities. Currently on aspirin, Plavix, statin, ARB, and beta tanya. Qualifiers: Coronary Disease-Associated Artery/Lesion type: [place] artery [place] vs. transplanted heart: [place] heart Associated angina: angina presence unspecified Qualified Code(s): I25.10 - Atherosclerotic heart disease of [place] coronary artery without angina pectoris (3) Tobacco abuse Current Visit: Yes Status: Chronic Per Cardiology: Previous to smoke 2 packs per day, currently down to half a pack per day. Patient is not interested in smoking cessation aids at this time. Discussion w patient/family: The assessment and plan as outlined above was discussed with the patient who expressed understanding and agreement. All questions were answered. Thank you for involving us in the care of your patient. Please call with any questions. History of Present Illness Consult date: 08/17/17 Requesting physician: Pj Kapoor Consult reason: CP Chief complaint: CP History of present illness: Ms. Merritt is a 52 year old female with a relevant past medical history of hypertension, hyperlipidemia, PVD, nicotine abuse, and CAD. Cardiology consult for chest pain. 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 She reports increased fatigue and dyspnea on exertion over the past few weeks. Reports intermittent midsternal chest pressure/tightness that occurs one to 2 times per week mainly at rest. She reports not utilizing nitroglycerin pills. She reports yesterday symptoms occurred at rest while at work describes it as "bricks sitting on her chest". She reports systolic blood pressures in the 160s and heart rates in the low 100s. Currently chest pain-free. She reports compliance with medical regimen. She has cut back smoking 2 packs per day to half a pack per day. Denies any active bleeding or blood loss. Denies any recent fever, chills, nausea, vomiting, diarrhea. Denies any palpitations. Denies any dizziness, syncope, falls. Past Med Surg Social Fam HX - Past Medical History Attestation: Yes The following information was validated with the patient. Source: patient, old records reviewed Medical history: coronary artery disease, hyperlipidemia, hypertension, other Psychiatric history: no psych history - Past Surgical History Surgical History: cholecystectomy, hysterectomy - Social History Smoking Status: Current every day smoker Packs per day: 1 PPD Smokeless Tobacco Status: No Alcohol use: none Drug use: none - Family History Father Race: Family Member Ethnicity: Non- Living Status: Age at : 60 Cause of : Stroke Hx Family Cardiac Disorders: Yes (CVA, Valve replacement, HTN) Hx Family Cancer: Yes (Breast) Hx Family Endocrine Disorder: Yes (DM) Hx Family Neurologic Disorders: Yes (CVA) Sister Race: Living Status: Age at : 47 Cause of : CVA Hx Family Cardiac Disorders: Yes (CVA) Hx Family Neurologic Disorders: Yes (CVA) Mother History Unknown: Yes Race: Family Member Ethnicity: Non- Medications and Allergies Aspirin [Lo-Dose Aspirin EC] 81 mg PO DAILY 10/03/16 [History] Atorvastatin Calcium [Lipitor] 80 mg PO QPM 11/22/16 [History] Sertraline [Zoloft] 50 mg PO QPM 11/22/16 [History] Clopidogrel [Plavix] 75 mg PO DAILY #90 tablet 11/24/16 [Rx] Metoprolol [Lopressor] 12.5 mg PO BID #120 tablet 11/24/16 [Rx] Nitroglycerin 0.4 mg SL Q5MIN PRN #120 tab.subl 11/24/16 [Rx] Losartan [Cozaar] 25 mg PO DAILY 08/16/17 [History] 3 Allergy/AdvReac Type Severity Reaction Status Date / Time hydrocodone [From Vicodin] AdvReac Hives Verified 11/22/16 10:54 Oxycodone [From Percocet] AdvReac Difficulty Verified 11/22/16 10:54 Breathing All Systems Review: A 10-system review of systems was performed and is negative for pertinent findings except as documented above in the HPI. - Constitutional Constitutional: fatigue - Cardiovascular Cardiovascular: as per HPI, chest pain at rest, dyspnea on exertion Physical Examination Vital Signs, Last 4 Hours Temp Pulse Resp BP Pulse Ox 08/17/17 07:26 97.8 F 66 15 109/67 95 General: Conversant, No Apparent Distress HEENT: Atraumatic, Normocephaly, Mucus Membranes Moist Neck: No JVD, Normal carotid pulses Cardiac: Reg Rate and Rhythm, Normal S1 and S2, No Murmur Lungs: Normal Breath Sounds, No Wheeze, Rales, Rhonchi Neuro: Alert and responsive, No focal deficits noted Abdomen: Soft, Non-Tender Skin: No rashes noted on visualized skin Musculoskeletal: No Chest Wall Tenderness Extremities: No Clubbing, No Cyanosis, No Edema, Normal Pulses Results 08/17/17 00:10 08/17/17 00:10 Lab Results Laboratory Tests 08/16/17 08/17/17 08/17/17 17:41 00:10 00:10 INR 0.9 Magnesium Troponin I 0.00 0.00 LDL Cholesterol, Calc 08/17/17 08/17/17 00:10 05:14 INR Magnesium 2.3 Troponin I 0.00 LDL Cholesterol, Calc 44 ITS Impressions Chest X-Ray 08/16/17 17:33 IMPRESSION: 1. No active pulmonary disease. D/ / Yonathan Mccain MD / Yonathan Mccain MD Interpreting Provider: Yonathan Mccain MD Active Medications Acetaminophen (Tylenol) 650 mg PO Q6HR PRN PRN Reason: Mild Pain (1-3) Stop: 02/15/18 22:43 Albuterol/Ipratropium (Duoneb) 3 ml IH [id number] PRN PRN Reason: Shortness Of Breath/Wheezing Stop: 02/15/18 23:35 Aspirin (Aspirin Ec) 81 mg PO DAILY [facility] Stop: 02/16/18 09:01 Atorvastatin Calcium (Lipitor) 80 mg PO QPM ROSALVA Stop: 02/16/18 18:01 Clopidogrel Bisulfate (Plavix) 75 mg PO DAILY [facility] Stop: 02/16/18 09:01 Dextrose/Water (Dextrose 50% (Syg)) 25 ml IVP AD PRN PRN Reason: Hypoglycemia Stop: 02/15/18 22:46 Glucagon (Glucagen) 1 mg IM ONCE PRN PRN Reason: Hypoglycemia Stop: 02/15/18 22:46 Glucose (Gluctose) 15 gm PO ONCE PRN PRN Reason: Hypoglycemia Stop: 02/15/18 22:46 Glucose (Gluctose) 30 gm PO ONCE PRN PRN Reason: Hypoglycemia Stop: 02/15/18 22:46 Dextrose (Dextrose 5%) 1,000 mls @ 100 mls/hr IVC .Q10H PRN PRN Reason: HYPOGLYCEMIA Stop: 02/15/18 22:46 Heparin Sodium/Dextrose (Heparin 25,000 Unit/500 Ml D5w) 25,000 unit in 500 mls @ 19.813 mls/hr IVC .Q24H ROSALVA; 12 UNIT/KG/HR PRN Reason: Protocol Stop: 02/15/18 23:01 Last Admin: 08/17/17 03:02 Dose: 12 unit/kg/hr, 19.813 mls/hr Insulin Human Lispro (Humalog) 0 units SQ TIDAC [facility] PRN Reason: Protocol Stop: 02/16/18 07:31 Last Admin: 08/17/17 08:52 Dose: Not Given Insulin Human Lispro (Humalog) 0 units SQ HS [facility] PRN Reason: Protocol Stop: 02/15/18 22:46 Last Admin: 08/16/17 23:35 Dose: Not Given Losartan Potassium (Cozaar) 25 mg PO DAILY [facility] PRN Reason: Protocol Stop: 02/16/18 09:01 Metoprolol Tartrate (Lopressor) 12.5 mg PO BID [facility] Stop: 02/16/18 09:01 Naloxone HCl (Narcan) 0.4 mg IVP Q2MIN PRN PRN Reason: Opioid Reversal Stop: 02/15/18 22:43 Nitroglycerin (Nitroglycerin) 0.4 mg SL Q5MIN PRN PRN Reason: Chest Pain Stop: 02/15/18 18:05 Last Admin: 08/16/17 18:28 Dose: 0.4 mg Nitroglycerin (Nitroglycerin) 0.4 mg SL Q5MIN PRN PRN Reason: Chest Pain Stop: 02/15/18 22:49 Ondansetron HCl (Zofran) 4 mg IVP Q8HR PRN PRN Reason: Nausea And Vomiting Stop: 02/15/18 22:43 Pantoprazole Sodium (Protonix) 40 mg IVP 0630 [facility] Stop: 02/16/18 06:31 Last Admin: 08/17/17 06:06 Dose: 40 mg Sertraline HCl (Zoloft) 50 mg PO QPM [facility] Stop: 02/16/18 18:01 - Imaging and Cardiology Stress Test: report reviewed Echo: report reviewed Cardiac cath: report reviewed - EKG Interpretation EKG results cardiology: personally reviewed (Comparable to previous ECG, sinus rhythm in the 80s), normal ECG, sinus rhythm, no diagnostic ischemia, other ( Telemetry reviewed with average heart rate 73, sinus rhythm, no significant events noted) Consult Discharge Plan - Plan Referrals: Alton Benítez MD [Primary Care Provider] - 08/24/17 10:15 am
[2017-08-17] MEDS ORDERED: Aspirin Enteric Coated 81 MG Tablet PO SCH (09:00)
[2017-08-17] MEDS ORDERED: Isosorbide MONOnitrate (24 HR) 30 MG TAB.ER.24H PO SCH (11:00)
[2017-08-17] MEDS ORDERED: Nitroglycerin 1,000 MCG/10 ML VIAL IV ONE (14:01)
[2017-08-17] MEDS ORDERED: *HR* Heparin 10,000 UNIT/10 ML VIAL ONE (14:01)
[2017-08-17] MEDS ORDERED: Heparin 1,000 UNITS/500 mL NS 500 ML ONE (14:01)
[2017-08-17] MEDS ORDERED: 0.9 % Sodium Chloride 1,000 ML ONE ×2 (14:01→14:45)
--- NOTE | 2017-08-17 14:44 | Pre-Sedation Evaluation ---
Pre-sedation evaluation - Pre-sedation checklist Date of procedure: 08/17/17 Procedure: [facility] Recent Vitals: Last Vital Signs Temp 98.1 F 08/17/17 11:18 Pulse 68 08/17/17 11:18 Resp 16 08/17/17 11:18 BP 122/81 08/17/17 11:18 Pulse Ox 95 08/17/17 11:18 H&P (including ROS) documented in medical record: Yes Previous reaction to sedatives/anesthetics: No Dietary Status: NPO after Midnight Airway Assessment: Patient can open mouth completely, TMJ function normal, Micrognathia (under-bite, receding chin) absent, Neck with adequate range of motion Dentition: No loose teeth or bridges Possible difficult airway: No ASA Classification *see protocol: CLASS II-Mild systemic disease Plan of Care: Pt appropriate candidate for procedure/moderate/conscious sedation , Risks/benefits of procedure/sedation discussed w/ patient/family
[2017-08-17] MEDS ORDERED: *HR* Midazolam HCl 2 MG/2 ML VIAL ONE (14:45)
[2017-08-17] MEDS ORDERED: *HR* FentaNYL (PF) 100 MCG/2 ML VIAL ONE (14:45)
--- NOTE | 2017-08-17 15:36 | Invasive Diagnostic Lab Proc ---
Name: Ailyn Merritt Date of Study: 08/17/2017 Date: 1965 Ht: 61.8in Medical Record#: [id number] Age: 52 Wt: 189.60lb Gender: Female BSA: 1.86 Order #: [id number] BMI: 34.89 Physicians Procedure Physician: No Blandon MD, [facility] Referring MD: Referring MD: Staff Name Position Time In HomeroWai agarwal RN Monitor 02:42 PM Chaka Bellah RN Monitor 02:42 PM Joan Ferrari RN Architectural Examiner 02:42 PM Ailyn Delarosa RN Architectural Examiner 02:42 PM Ca Avendano RT Scrub 02:42 PM Ina Ye RT (R) Scrub 02:44 PM Indications Indication Unstable Angina Procedures Performed Procedure L HRT ARTERY/VENTRICLE ANGIO Pre-Procedure Checklist Informed consent is complete signed and on chart. H&P is on chart. ID band is on and ID verified with patient. Patient NPO for procedure The procedure was described for the patient and questions were answered. Blood Pressure: 122/81 ECG is on chart. Rhythm: NSR Plan of Care Patient will tolerate the procedure without complications. Adequate level of comfort will be maintained. Hemodynamics will remain stable Patient will recover from procedure without complications. Respiratory function will be maintained. Cardiac rhythm will remain stable. Patient temperature will be maintained. Patient and/or family have verbalized understanding of the procedure. Patient Education Chief Complaint/Reason for Test: Cardiac Cath Developmental Category: Adult (18-64 years) Developmentally Appropriate for Age: Yes Learning Barriers: None Education Needs: Procedure Education Method: Verbal Information Taught: Cardiac Cath Educational Evaluation: Able to repeat information Intravenous Access Time IV Size Location DC'd Fluid/Drip Rate Units RN 18g 1 1/4" Patent On Arrival Lt Antecubital 0.9NaCl Joan Ferrari RN Allergies hydrocodone Oxycodone acetaminophen PERCOCET, VICODIN Vital Signs Time BP (mmHg) HR (bpm) O2 Sat. RR (bpm) LOC 02:50 PM / % 5 = Fully awake and oriented or at pre-proc level 02:50 PM / % 4 = Oriented but drowsy 02:44 PM 110 / 78 % 02:50 PM 147 / 72 73 98 % 23 02:54 PM 132 / 79 74 97 % 27 03:00 PM 130 / 75 68 99 % 18 03:05 PM 140 / 71 72 99 % 23 03:10 PM 129 / 71 69 100 % 38 03:14 PM 103 / 80 % Procedural Medications Time Medication Dose Units Method Given By 02:48 PM Oxygen 2 L/min nasal cannula Joan Ferrari RN 02:48 PM Versed 2 mg Intravenous Joan Ferrari RN 02:48 PM Fentanyl 50 mcg Intravenous Joan Ferrari RN 02:56 PM Benadryl 25 mg Intravenous Joan Ferrari RN 02:59 PM Lidocaine 2% 18 ml Subcutaneous No Blandon MD, FACC 03:05 PM Benadryl 25 mg Intravenous Joan Ferrari RN ASA Classification: CLASS II- Mild systemic disease (i.e. well-controlled diabetes, hypertension, asthma, cigarette smoking) Nimisha Score Preprocedure Postprocedure Activity 2- Moves 4 extremities sustained head lift Activity 2- Moves 4 extremities sustained head lift Circulation 2- SBP +/= 20 points of pre-anesthetic level Circulation 2- SBP +/= 20 points of pre-anesthetic level Consciousness 2- Awake and alert oriented x 3 Consciousness 2- Awake and alert oriented x 3 O2 Saturation 2- Able to maintain O2 satruation of 92% on room air O2 Saturation 2- Able to maintain O2 satruation of 92% on room air Respiratory 2- Able to deep breathe and cough well Respiratory 2- Able to deep breathe and cough well Total Score 10 Total Score 10 Contrast Agent: Isovue Diagnostic Contrast: 60 ml Total Contrast: 60 ml Fluoro Dose: 112 mGy Procedure Log Time Note Enter By 02:41 PM CathStat 02:42 PM 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 to stores laborer 2 at 14:42 [facility] 02[facility]42 PM Wai Valentin RN Position: Monitor Time in: 14:42 santino 02:42 PM Kriss Bell RN Position: Monitor Time in: 14:42 santino 02:42 PM Joan Ferrari RN Position: Architectural Examiner Time in: 14:42 [facility] 02:42 PM Ailyn Delarosa RN Position: Architectural Examiner Time in: 14:42 alyseallcarolann 02:42 PM Ina Ye RT (R) Position: Scrub Time in: 14:42 santino 02:42 PM Patient charges- Angio tray pack, Navilyst 3mm J, Pulse Oximetry and ACIST tubing and transducer jcallihan :43 PM Cheri paged/called 14:43. jcallihan 02:43 PM Physicstefano responded and notified patient is ready 14:43 jcallihan 02:43 PM Physician arrived 14:43 jcallan 02:43 PM Case Delayed no, inpatient jcallihan 02:44 PM Hair removed from procedure site in procedure lab using clippers. Bilateral groin prepped with Chloraprep by Ina Ye (R), then patient was draped. Skin intact. jcallan 02:44 PM Vitals capture started with the following parameters, Patient=Adult, Interval=5 min, Initial Ezjawsjw=943 mmHg, Deflation Rate=5 mmHg, Cuff placed on Right Arm 02:44 PM PZFU=291/78 mmhg, Comment=nsr 02:45 PM Meet and greet completed [facility] 02:45 PM Sign in performed according to hospital policy. [facility] 02[facility] PM Procedure start 14:45 jcallan 02:48 PM ASA Class CLASS II- Mild systemic disease (i.e. well-controlled diabetes, hypertension, asthma, cigarette smoking) jcallan 02:48 PM Time: 14:48 Oxygen on at 2 L/min per nasal cannula by Joan Ferrari RN [facility] 02:48 PM Time: 14:48 Versed 2 mg Intravenous Given by Joan Ferrari RN [facility] 02:48 PM Time: 14:48 Fentanyl 50 mcg Intravenous Given by Joan Ferrari RN [facility] 02:50 PM HR=73 bpm, NGUM=916/72 mmhg, SpO2=98.0 %, Resp=23 B/min, Comment=nsr 02:50 PM Time: 14:50 Patient comfortable and pain free: Yes jcallihan 02:50 PM Time: 14:50LOC: 5 = Fully awake and oriented or at pre-proc level jcallihan 02:50 PM Recorded ECG: HR=75 Condition=Condition 1 02:51 PM Clinical Presentation: Unstable angina jcallihan 02:54 PM HR=74 bpm, QUTI=431/79 mmhg, SpO2=97.0 %, Resp=27 B/min, Comment=nsr 02:56 PM Time: 14:56 Benadryl 25 mg Intravenous Given by Joan Ferrari RN 02:56 PM Pressure channel 1 zeroed. 02:59 PM Time out performed according to hospital policy [email or web address] 03:00 PM HR=68 bpm, WKGC=228/75 mmhg, SpO2=99.0 %, Resp=18 B/min, Comment=nsr 03:00 PM Time: 14:59 18 ml Lidocaine 2% to right groin Subcutaneous Given by No Blandno MD, [facility] jcallihstefano 03:01 PM Access obtained by percutaneous puncture. 5Fr 10cm Terumo [place] sheath placed in right Femoral artery. [id number] jcallihan 03:01 PM 5Fr FL 4 catheter inserted over the wire DN jcallihstefano 03:02 PM LCA angiography performed in multiple views. [email or web address] 03:02 PM Recorded Pressure: Ao, HR=76, Condition=Condition 1 (Aorta) Ao 143/102/120 03:03 PM Catheter removed [email or web address] 03:03 PM 5Fr FR 4 catheter inserted over the wire DN jcallihstefano 03:04 PM RCA angiography performed in multiple views. jcallihan 03:04 PM Recorded Pressure: Ao, HR=71, Condition=Condition 1 (Aorta) Ao 144/102/120 03:05 PM HR=72 bpm, TNYI=574/71 mmhg, SpO2=99.0 %, Resp=23 B/min, Comment=nsr 03:05 PM Coronary Dominance: right [email or web address] 03:05 PM Catheter removed [email or web address] 03:05 PM 5Fr Pigtail catheter inserted over the wire DN jcallihstefano 03:05 PM Time: 14:50LOC: 4 = Oriented but drowsy jcallihan 03:05 PM Time: 14:50 Patient comfortable and pain free: Yes [email or web address] 03:05 PM Time: 15:05 Benadryl 25 mg Intravenous Given by Joan Ferrari RN 03:06 PM Pressure channel 1 zeroed. 03:06 PM Recorded Pressure: LV, HR=72, Condition=Condition 1 (Left Ventricle) LV 101/9/11 03:06 PM Catheter selectively placed in left ventricle [email or web address] 03:06 PM Recorded Pressure: LV, Ao, HR=77, Condition=Condition 1 (Left Ventricle) LV 135/35/46, (Aorta) Ao 135/40/105 03:07 PM Bolus angiogram of left Ventricle complete: 8 ml/sec for a total of 24 mls jcallihan 03:07 PM Catheter removed jcallihan 03:08 PM Bolus angiogram of right Femoral complete: 4 ml/sec for a total of 7 mls jcallihan 03:08 PM Procedure completed at 15:08 [email or web address] 03:08 PM Sign out completed: Radiation Dose 112 mGy Fluoro Time: 1.1 Isovue 370 - 200ml contrast 60 ml given by No Blandon MD, FACC. Complications: NoneCardiac Rehab Consult needed: NoConfirmed administered medications: Yes jcallihan 03:10 PM HR=69 bpm, BTDJ=086/71 mmhg, QxD0=479.0 %, Resp=38 B/min, Comment=nsr 03:10 PM Post ECG NSR jcallihan 03:10 PM Post Blood Pressure 129/71 jcallihan 03:11 PM Arterial sheath pulled, Mynx closure device used and was Successful [id number] S/N. jcallihan 03:11 PM Information taught Cardiac Cath and Mynx jcallihan 03:14 PM DQIP=388/80 mmhg, Comment=nsr 03:15 PM Education needs Procedure, Plan of Care, and Responsibilities of Patient in Care jcallihan 03:15 PM Learning barriers :None jcallihan 03:15 PM Education Methods Verbal jcallihan 03:15 PM Education evaluation Able to repeat information jcallihan 03:15 PM Site status No bleeding/hematoma - Rt Groin as reported by Ina Ye RT (R) at 15:15 jcallihan 03:15 PM Opsite applied jcallihan 03:16 PM Plavix, Effient or Brilinta given No jcallihan 03:16 PM Delay to floor No jcallihan 03:16 PM Family placed in consult room. jcallihan 03:16 PM Complications: None jcallihan 03:16 PM Fluoro Time: 1.1 jcallihan 03:16 PM Isovue 370 - 200ml contrast 60 ml given by No Blandon MD, FACC. jcallihan 03:16 PM Radiation Dose 112 mGy jcallihan 03:19 PM Report given to Shubham POSEY Pt taken to 3B Room #48. 15:19 jcallihan 03:19 PM Lesion found in LMCA. Pre Stenosis: 15 Pre MITZY Flow: jcallihan 03:19 PM Lesion found in Proximal LAD. Pre Stenosis: 15 Pre MITZY Flow: jcallihan 03:19 PM Lesion found in Proximal RCA. Pre Stenosis: 25 Pre MITZY Flow: jcallihan 03:19 PM Lesion found in Distal RCA. Pre Stenosis: 15 Pre MITZY Flow: jcallihan 03:20 PM Lesion found in Proximal Circumflex. Pre Stenosis: 20 Pre MITZY Flow: jcallihan 03:21 PM Left Main Coronary Artery with 15% stenosis jcallihan 03:21 PM Proximal Left Anterior Descending Coronary Artery with 15% stenosis. If graft is supplying this territory, 0 % stenosis. jcallihan 03:21 PM Circumflex, Obtuse Marginal, Left Posterior Descending, and Left Posterolateral Coronary Arteries with 20 % stenosis. If graft is supplying this area, 0 % stenosis jcallihan 03:22 PM Right Coronary, Right Posterior Descending Arteries with Right Posterolateral and Acute Marginal branches with 25 % stenosis. If graft is supplying this area, 0 % stenosis jcallihan 03:22 PM 15:22 Post Pulses Bilateral DP & PT 2+ jcallihan 03:24 PM Patient out of room: 15:24 jcallihan Complications Complication None None Hemodynamics Pressures Site Systolic/A Wave Diastolic/V Wave Mean AO 143 102 120 AO 144 102 120 LV 101 9 11 LV 135 35 46 AO 135 40 105 Post Procedure Information Blood Pressure: 129/71 mmHg Rhythm: NSR Post procedural instructions were given Closure Device Time Device Success/Fail 08/17/2017 3:10:00 PM MynxGrip Successful Site Checks Time Location Status Staff Sheath In? Note 03:15 PM Rt Groin No bleeding/hematoma Ina Ye RT (R) Pulses Time Site Pre-Procedure Post-Procedure Note 3:22:00 PM Bilateral DP & PT 2+ Updated by Wai Valentin RN on 08/17/2017 3:28:18 PM electronically signed on 08/17/2017 3:29:22 PM with status of Final
--- NOTE | 2017-08-17 16:08 | Electrocardiograph Report ---
[address] [place], [place] [address] Test Date: 2017-08-16 Pat Name: Ailyn Merritt Department: 102 Room: 3B48 Gender: F Self Pay Collector: : 1965 Requested By: Christos Abraham Order Number: [id number] Reading MD: Josef Blandon Measurements Intervals [place] Rate: 89 P: 35 NM: 134 QRS: 51 QRSD: 84 T: 36 QT: 353 QTc: 399 Interpretive Statements SINUS RHYTHM POSSIBLE INFERIOR MYOCARDIAL INFARCTION [30 ms Q WAVE IN II/aVF], PROBABLY OLD Electronically Signed On 08-17-2017 16:06:40 EDT by Josef Blandon
[2017-08-17 16:37] VITALS: BP 147/97
--- NOTE | 2017-08-17 18:30 | Discharge Summary ---
Date of Encounter: 08/17/17 Time of Encounter: 18:15 - Discharge Diagnosis (1) Chest pain, rule out acute myocardial infarction Priority: Primary Status: Acute Comments: Acute chest pain began morning of admission, between 9 and 10 AM as pressure centralizing the chest and radiating up to her neck and right shoulder. Patient states same pain occurred before her previous heart catheterization with stent placement 1. Echocardiogram, nuclear stress test, and CHLOE done . 08/09 testing shows LVEF 65% with perfusion imaging negative for ischemia or infarct. Trops negative x 3. Continue Plavix, Lipitor, Lopressor, and Cozaar. Pt had [facility] today,single vessel CAD, prior stent in mid RCA patent. EF 65%. Pt denies chest pain at this time. We discussed risk factor modification, primarily smoking cessation, Pt is agreeable to Chantix. Labs WNL, Vitals stable and WNL. Pt will f/u with cardiology in the office. Pt is anxious for and ready for discharge. (2) DVT prophylaxis Priority: Secondary Status: Acute Comments: Pt was on Heparin gtt. Continue ASA, Plavix at home. (3) HLD (hyperlipidemia) Priority: Secondary Status: Chronic Comments: BP well controlled in hospital, continue home medications and casual monitoring of BP. Qualifiers: Hyperlipidemia type: pure hypercholesterolemia Qualified Code(s): E78.00 - Pure hypercholesterolemia, unspecified; E78.0 - Pure hypercholesterolemia (4) HTN (hypertension) Priority: Secondary Status: Chronic Comments: Continue Statin. Qualifiers: Hypertension type: essential hypertension Qualified Code(s): I10 - Essential (primary) hypertension (5) CAD (coronary artery disease) Priority: Secondary Status: Chronic Comments: Pt with single vessel disase per [facility] today. Continue ASA, statin, Plavix, and BB. Qualifiers: Coronary Disease-Associated Artery/Lesion type: [place] artery [place] vs. transplanted heart: [place] heart Associated angina: angina presence unspecified Qualified Code(s): I25.10 - Atherosclerotic heart disease of [place] coronary artery without angina pectoris (6) Tobacco abuse Priority: Secondary Status: Chronic Comments: Pt has decided to try Chantix for smoking cessation. - Discharge Medications Prescriptions: Varenicline Tartrate [Chantix] 1 each PO DAILY #1 tab.ds.pk Home Medications: Aspirin [Lo-Dose Aspirin EC] 81 mg PO DAILY 10/03/16 [History] Atorvastatin Calcium [Lipitor] 80 mg PO QPM 11/22/16 [History] Sertraline [Zoloft] 50 mg PO QPM 11/22/16 [History] Clopidogrel [Plavix] 75 mg PO DAILY #90 tablet 11/24/16 [Rx] Metoprolol [Lopressor] 12.5 mg PO BID #120 tablet 11/24/16 [Rx] Nitroglycerin 0.4 mg SL Q5MIN PRN #120 tab.subl 11/24/16 [Rx] Losartan [Cozaar] 25 mg PO DAILY 08/16/17 [History] Varenicline Tartrate [Chantix] 1 each PO DAILY #1 tab.ds.pk 08/17/17 [Rx] Allergies/Adverse Reactions: 3 Allergy/AdvReac Type Severity Reaction Status Date / Time hydrocodone [From Vicodin] AdvReac Hives Verified 11/22/16 10:54 Oxycodone [From Percocet] AdvReac Difficulty Verified 11/22/16 10:54 Breathing Procedures/tests Complete & Pending: Procedures Performed prior 72 hours Category Date Time Status CL Cardiac Catheterization [CL] Routine [employer] 08/17/17 14:06 Completed Date of admission: 08/16/17 18:54 Primary care physician: Alton Benítez MD Discharging clinician: Luana Charles Anticipated date of discharge: 08/17/17 - Patient Status Disposition: Home, Self-Care Condition: Good Functional capacity at discharge: independent ambulation Overall status at discharge: patient is back to baseline - Discharge Instructions Follow Up With: Alton Benítez MD [Primary Care Provider] - 08/24/17 10:15 am Additional Instructions: Follow-up with your primary care provider in the next 7-10 days for follow-up visit. Continue your normal medications at home. Resume your normal activities at home. The Chantix has been called in to your pharmacy. You may pick it up tomorrow. Please try to stop smoking, change her diet to low-cholesterol, low-fat, diabetic diet. Attempt to increase your exercise daily. Return to the emergency department as needed for any other problems or concerns , or if your symptoms worsen or return. - Diet and Activity Activity: increase activity as tolerated Diet: diabetic diet, low fat, low cholesterol Hospital course: Ms. Merritt is a 52 year old female See assessment and plan for hospital course. - Time Spent with Patient Total time spent providing and/or coordinating discharge services: Less than 30 minutes - Constitutional Vitals: Temp Pulse Resp BP Pulse Ox 98.3 F 71 16 147/97 97 08/17/17 16:36 08/17/17 16:36 08/17/17 16:36 08/17/17 16:36 08/17/17 16:36 General appearance: Present: cooperative, mild distress, A&O X 3, pleasant, obese, answers questions appropriately - Head Head exam: Present: atraumatic, normal inspection, normocephalic - Eye Eye exam: Present: normal appearance, conjuntiva pink, sclera anicteric - Neck Neck exam general surgery: Present: supple, trachea midline. Absent: lymphadenopathy, tenderness - Respiratory Respiratory exam: Present: decreased breath sounds, CTAB. Absent: accessory muscle use, chest wall tenderness, rales, respiratory distress, rhonchi, wheezes - Cardiovascular Cardiovascular exam: Present: RRR, +S1, +S2. Absent: diastolic murmur, gallop, rubs, systolic murmur - GI/Abdominal GI/Abdominal exam: Present: normal bowel sounds, soft, no peritoneal signs. Absent: distended, hepatomegaly, tenderness - Extremities Exam Extremities exam: Present: normal capillary refill, normal inspection, warm, radial pulses palpable and symmetrical. Absent: calf tenderness, cyanotic, pedal edema, tenderness - Neurological Exam Neurological exam: Present: alert, oriented X3, no focal deficits. Absent: facial droop, speech deficit - Skin Skin exam: Present: dry, intact, normal color, warm. Absent: rash
== END 2017-08-17 19:10 | disposition home or self-care (01) ==
LOC: 3BNU 17:24 → EMEROO 17:24 → 3BNU 19:33
PROVIDERS: ADMIT Registered Nurse; ATTEND Registered Nurse

== ENCOUNTER 2020-10-10 13:42 | Observation (INO) ==
[2020-10-10 14:39] LABS: Basophils # 0.1 K/mcL (0.0-0.2); Basophils % 0.7 %; Eosinophils # 0.4 K/mcL (0.0-0.6); Eosinophils % 4.5 %; Hematocrit 46.7 % (35.3-44.9); Hemoglobin 15.5 g/dL (11.5-15.4); Immature Granulocytes % 0.6 % (0-4); Lymphocytes # 3.3 K/mcL (0.6-4.6); Lymphocytes % 38.1 %; Mean Corpuscular HGB Conc 33.2 g/dL (31.6-35.5); Mean Corpuscular Hemoglobin 31.4 pg (28.0-33.3); Mean Corpuscular Volume 94.7 fL (83.0-100.0); Mean Platelet Volume 9.9 fL (9.4-12.4); Monocytes # 0.5 K/mcL (0.0-1.3); Monocytes % 5.6 %; Neutrophils # 4.4 K/mcL (1.6-8.9); Platelet Count 216 K/mcL (140-400); Red Blood Count 4.93 M/mcL (3.82-4.97); Red Cell Distribution Width 12.4 % (11.5-14.5); Segmented Neutrophils % 50.5 %; White Blood Count 8.8 K/mcL (4.3-11.1)
[2020-10-10 14:59] LABS: BUN/Creatinine Ratio 20 (6-26); Blood Urea Nitrogen 9 mg/dL (6-20); Calcium 7.2 mg/dL (8.6-10.3); Carbon Dioxide 20 mEq/L (23-29); Chloride 112 mEq/L (98-107); Glucose 164 mg/dL (70-105); Osmolality,Calculated 292 (280-300); Sodium 140 mEq/L (136-145); Troponin I < 0.03 ng/mL (< 0.04); eGFR For African Americans > 60 (> 60); eGFR For Non-African Americans > 60 (> 60)
[2020-10-10] MEDS ORDERED: Isovue-370 500 ML BOTTLE IVP ONE (15:20)
[2020-10-10] MEDS ORDERED: Magnesium Oxide 400 MG TABLET PO STA (16:06)
[2020-10-10] MEDS ORDERED: Potassium Chloride Elixir 20 MEQ/15 ML UDC PO ONE (16:06)
[2020-10-10] MEDS ORDERED: Nitroglycerin 0.4 MG TAB.SUBL SL PRN (19:27)
[2020-10-10] MEDS ORDERED: Aspirin Enteric Coated 325 MG Tablet PO ONE (19:27)
[2020-10-10] MEDS ORDERED: *HR* Dextrose 50 % in Water (Vial) 50 ML VIAL IVP PRN (19:28)
[2020-10-10] MEDS ORDERED: D5% in Water 1,000 ML IVC PRN (19:28)
[2020-10-10] MEDS ORDERED: Dextrose Gel 15 GM/37.5 ML TUBE PO PRN ×2 (19:28)
[2020-10-10] MEDS ORDERED: Ondansetron ODT 4 MG TAB.RAPDIS SL PRN (19:29)
[2020-10-10] MEDS ORDERED: Acetaminophen 325 MG TABLET PO PRN (19:29)
[2020-10-10] MEDS ORDERED: Naloxone 0.4 MG/ML INJ IVP PRN (19:29)
[2020-10-10] MEDS ORDERED: Insulin LISPRO 300 UNITS/3 ML VIAL SUBQ SCH (21:00)
[2020-10-10] MEDS: *HR* Heparin 5,000 UNIT/ML VIAL SQ SCH (22:17)
[2020-10-10 23:02] LABS: BUN/Creatinine Ratio 15 (6-26); Blood Urea Nitrogen 9 mg/dL (6-20); Calcium 9.2 mg/dL (8.6-10.3); Carbon Dioxide 23 mEq/L (23-29); Chloride 105 mEq/L (98-107); Glucose 176 mg/dL (70-105); Osmolality,Calculated 285 (280-300); Potassium 4.1 mEq/L (3.5-5.1); Sodium 136 mEq/L (136-145); Troponin I < 0.03 ng/mL (< 0.04); eGFR For African Americans > 60 (> 60); eGFR For Non-African Americans > 60 (> 60)
[2020-10-11 01:11] LABS: Hemoglobin 15.9 g/dL (11.5-15.4); Mean Corpuscular HGB Conc 33.1 g/dL (31.6-35.5); Mean Corpuscular Hemoglobin 31.8 pg (28.0-33.3); Mean Platelet Volume 9.7 fL (9.4-12.4); Platelet Count 232 K/mcL (140-400); Red Cell Distribution Width 12.4 % (11.5-14.5); White Blood Count 11.6 K/mcL (4.3-11.1)
[2020-10-11 01:30] LABS: BUN/Creatinine Ratio 15 (6-26); Blood Urea Nitrogen 10 mg/dL (6-20); Calcium 9.5 mg/dL (8.6-10.3); Carbon Dioxide 25 mEq/L (23-29); Chloride 104 mEq/L (98-107); Chol/HDL Ratio 6.3 (0-4.9); Cholesterol 200 mg/dL (< 200); Glucose 143 mg/dL (70-105); HDL Cholesterol 32 mg/dL (40-59); Magnesium 2.3 mg/dL (1.6-2.6); Osmolality,Calculated 286 (280-300); Potassium 4.4 mEq/L (3.5-5.1); Sodium 137 mEq/L (136-145); Triglycerides 412 mg/dL (< 150); eGFR For African Americans > 60 (> 60); eGFR For Non-African Americans > 60 (> 60)
[2020-10-11] MEDS ORDERED: Regadenoson 0.4 MG/5 ML SYRINGE IVP ONE (06:09)
[2020-10-11] MEDS: *HR* Heparin 5,000 UNIT/ML VIAL SQ SCH (07:09)
[2020-10-11] MEDS ORDERED: Isovue-370 500 ML BOTTLE IVP ONE (08:44)
[2020-10-11] MEDS ORDERED: Aspirin Enteric Coated 81 MG Tablet PO SCH (09:00)
[2020-10-11] MEDS: Insulin LISPRO 300 UNITS/3 ML VIAL SUBQ SCH ×2 (09:00→12:43)
[2020-10-11 09:07] LABS: Estimated Average Glucose 180 mg/dl; Hemoglobin A1C 7.9 %
[2020-10-11] MEDS ORDERED: Fenofibrate 54 MG TABLET PO SCH (09:30)
[2020-10-11 11:19] VITALS: BP 102/66
== END 2020-10-11 14:55 | disposition home or self-care (01) ==
LOC: 3BNU 13:42 → EMEROOARM 13:42 → SUATTDRO 18:38 → 3BNU 21:18
PROVIDERS: ADMIT Student in an Organized Health Care Education/Training Program; ATTEND Internal Medicine